=== PATIENT | male | born 2005 | race Caucasian/White ===

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

== ENCOUNTER 2025-03-27 14:53 | Inpatient (IN) | payer SELFPAY ==
[2025-03-27] VITALS (26 sets, daily range): BP systolic 127–174; BP diastolic 64–92; PULSE 78–125; RESP 16–26; TEMP 36.7; O2SAT 88–100
--- NOTE | ~2025-03-27 | XR_ITS ---
EXAMINATION: XR chest 2V, 03/27/2025 17:05 CLINIC SCHEDULER HISTORY: dyspnea, sob on exertion COMPARISON: No comparisons available. Technique: 2 views obtained. Findings: The lungs are clear, no effusion. No pneumothorax. Heart is normal size. Mediastinal and hilar contours are within normal limits. Bony thorax no acute abnormality. Impression: No acute cardiopulmonary abnormality. Reviewed, dictated and finalized at location P. IC SCHEDULER Impression: No acute cardiopulmonary abnormality.
--- NOTE | ~2025-03-27 | CT_ITS ---
EXAMINATION: CTA chest PE protocol DATE: 03/27/2025 20:28 INDICATION: Dyspnea. TECHNIQUE: Computed tomography angiography (CTA) of the chest was performed with 100 mL Omnipaque-350 intravenous contrast timed to evaluate the pulmonary arteries. Coronal maximum intensity projection 3D-reconstructions were created by the technologist. Automated exposure control and iterative reconstruction technique were employed. The dose-length product was 1088.11 mGy-cm. COMPARISON: None. FINDINGS: There are patchy groundglass opacities in left lower lobe. No pleural effusion. The heart size is normal. No pericardial effusion. There is no pulmonary embolus. There is moderate thoracic spondylosis. IMPRESSION: 1. No pulmonary embolus. 2. Patchy groundglass opacities in left lower lobe, consistent with pneumonia. Reviewed, dictated and finalized at location E. R TESTING SUPERVISOR
[2025-03-27] MEDS: IPRATROPIUM 0.5 MG/ALBUTEROL SULFATE 2.5 MG (BASE) AMPUL.NEB 3 ML INHALATION ×2 (16:24→23:37)
[2025-03-27 16:55] LABS: Hematocrit 45.4 % (42.0-52.0); Hemoglobin 14.2 g/dL (14.0-18.0); Immature Granulocyte Percent A 0.4 % (0-0.5); Lymphocytes Absolute Auto 3.42 K/mm3 (0.9-3.2); Mean Corpuscular HGB Conc 31.3 g/dl (32-36); Mean Corpuscular Hemoglobin 25.8 pg (26-34); Mean Corpuscular Volume 82.4 fl (80-100); Nucleated Red Blood Cells Absolute Auto 0.000 K/mm3 (0.0-0.012); Nucleated Red Blood Cells Perc 0.0 % (0.0-0.2); Platelet Count Result 274 k/mm3 (150-375); Red Blood Count 5.51 M/mm3 (4.6-6.20); White Blood Count 9.9 K/mm3 (4.5-10.0)
--- NOTE | 2025-03-27 16:56 | PC.NURSE ---
02 sats 86-87% on room air. Appears in no distress.
[2025-03-27 17:06] LABS: Alanine Aminotransferase 72 U/L (6-50); Albumin Level 4.5 g/dL (3.5-5.1); Alkaline Phosphatase 80 U/L (38-126); Anion Gap 10 mmol/L (4-12); Aspartate Amino Transferase 60 U/L (17-59); Bilirubin,Total 0.6 mg/dL (0.2-1.3); Blood Urea Nitrogen 14 mg/dL (9-20); Calcium 9.4 mg/dL (8.4-10.2); Carbon Dioxide 24 mmol/L (22-30); Chloride 103 mmol/L (98-107); Estimated CRCL calculation 271 ml/min; Estimated Glomerular Filt Rate > 60; Glucose 107 mg/dL (65-110); Potassium 4.5 mmol/L (3.4-5.0); Sodium 137 mmol/L (137-145); Total Protein 8.3 g/dL (6.3-8.2)
--- NOTE | 2025-03-27 17:24 | ED_ITS ---
HPI - General Adult General Chief complaint: Shortness of Breath/Dyspnea Stated complaint: Shortness of breath Time Seen by Provider: 03/27/25 15:48 History of Present Illness HPI narrative: 19-year-old male with PMH asthma presenting with increasing dyspnea for the last week. Patient reports URI symptoms including cough/congestion and a mild headache. He endorses having to use his rescue inhaler multiple times a day for the last week which gave him mild relief. He denies chest pain, dizziness, fevers/chills. Related Data Home Medications ?Medication ?Instructions ?Recorded ?Confirmed ?Last Taken ?Type albuterol sulfate 90 mcg/actuation 1 - 2 puff inhalati on Q6-8H 12/30/19 03/27/25 03/27/25 History aerosol inhaler Allergies Allergy/AdvReac Type Severity Reaction Status Date / Time No Known Allergies Allergy Verified 03/27/25 22:30 Review of Systems 2 Review of Systems: All systems reviewed & are unremarkable except as noted in HPI and below PMFSH Past Medical History Medical History Asthma Depression Family History Family History (Updated 03/27/25 @ 22:35 by Blade Prieto RN) Father Diabetes mellitus Mother Diabetes mellitus Social History Social History Smoking status: Never smoker Second hand tobacco smoke exposure: No Alcohol intake: former Substance use: current Substance use type: prescription drug Lack of Transportation: No Lack of Food: Never True Current Housing: I Have Housing Concerned About Future Housing: No Difficulty Paying Gas/Electric Bills: No Difficulty Paying for Meds: No Currently Unemployed: YES Education: High School Diploma/GED Difficulty w/ Childcare or Family Care: No Gender identity (if verbalized by the patient): Male Spiritual care concerns: No Exam 2 Narrative: GENERAL: Well-appearing, well-nourished, and in no acute distress. HEAD: Normocephalic, atraumatic. EYES: PERRLA and EOMI. ENT: Nares clear, no rhinorrhea or epistaxis. Mucous membranes moist. Oropharynx without tonsillar hypertrophy exudate or other lesions. Bilateral TMs pearly lawson non-bulging NECK: Supple. No adenopathy or masses. No carotid bruits or JVD CHEST: Wheezing in all lung morales. HEART: Tachycardic. Normal rhythm. No murmur heard. Normal peripheral pulses. ABDOMEN: Soft, nontender, nondistended, normal active bowel sounds. EXTREMITIES: Normal range of motion. No edema. SKIN: Warm, dry, no rash. NEURO: No focal deficits. Alert and oriented x3. PSYCH: Normal mood and affect Course Vital Signs Vital signs: Vital Signs Temperature 36.7 C 03/27/25 15:03 Pulse Rate 94 03/27/25 15:03 Respiratory Rate 20 03/27/25 15:03 Blood Pressure 174/92 H 03/27/25 15:03 Pulse Oximetry 96 03/27/25 15:03 Oxygen Delivery Room Air 03/27/25 15:03 Temperature 36.3 C L 03/29/25 20:00 Pulse Rate 98 03/29/25 21:21 Respiratory Rate 16 03/29/25 21:21 Blood Pressure 131/58 L 03/29/25 20:00 Pulse Oximetry 96 03/29/25 22:20 Oxygen Delivery Room Air 03/29/25 22:20 Oxygen Flow Rate 3 03/29/25 21:21 Fraction of Inspired Oxygen 21 03/29/25 22:20 Medical Decision Making [facility] Narrative Medical decision making narrative: 19-year-old male with PMH asthma presenting with increasing dyspnea for the last week. Patient reports URI symptoms including cough/congestion and a mild headache. He endorses having to use his rescue inhaler multiple times a day for the last week which gave him mild relief. He denies chest pain, dizziness, fevers/chills. Upon my initial assessment, patient is speaking in full sentences and sitting comfortably. Exam demonstrated wheezing in all lung morales and mild tachycardia. Administered Solu-Medrol and DuoNeb. Lab work WNL and no acute cardiopulmonary findings on CXR. Shortly after completing DuoNeb nursing staff notes a drop in O2 levels. Patient put on 2 L NC oxygen. Only mild improvement in lung sounds with first DuoNeb. Administered 1 L NS, IV Mag, and hour long DuoNeb. Patient reports he feels better but without oxygen his O2 saturation continues to drop to high 80s. Assessed patient with walking pulse oximetry and oxygen then dropped to low 80s. Began patient on ceftriaxone and doxycycline for CAP. Spoke with Dr. Patel with hospitalist for admitting for further care. Dr. Patel recommended ABG, CTA, and a full respiratory panel. Those have been added and will be further followed by the primary team. Agrees with admission at this time. Medical Records Medical records reviewed: Yes I reviewed the external patient's medical records. Vital Signs Vital Signs: Vital Signs Temperature 36.7 C 03/27/25 15:03 Pulse Rate 94 03/27/25 15:03 Respiratory Rate 20 03/27/25 15:03 Blood Pressure 174/92 H 03/27/25 15:03 Pulse Oximetry 96 03/27/25 15:03 Oxygen Delivery Room Air 03/27/25 15:03 Temperature 36.3 C L 03/29/25 20:00 Pulse Rate 98 03/29/25 21:21 Respiratory Rate 16 03/29/25 21:21 Blood Pressure 131/58 L 03/29/25 20:00 Pulse Oximetry 96 03/29/25 22:20 Oxygen Delivery Room Air 03/29/25 22:20 Oxygen Flow Rate 3 03/29/25 21:21 Fraction of Inspired Oxygen 21 03/29/25 22:20 Lab Data Lab results reviewed: Yes I reviewed the patient's lab results. 03/29/25 04:41 03/29/25 04:41 Labs: Lab Results 03/27/25 Range/Units 16:43 WBC 9.9 (4.5-10.0) K/mm3 RBC 5.51 (4.6-6.20) M/mm3 Hgb 14.2 (14.0-18.0) g/dL Hct 45.4 (42.0-52.0) % MCV 82.4 (80-100) fl MCH 25.8 L (26-34) pg MCHC 31.3 L (32-36) g/dl RDW 14.0 (11.5-14.5) % Plt Count 274 (150-375) k/mm3 MPV 11.0 H (7.4-10.4) fl Immature Gran % (Auto) 0.4 (0-0.5) % Neut % (Auto) 50.8 (45.5-73.1) % Lymph % (Auto) 34.5 (18.3-44.2) % [place] % (Auto) 7.0 (2.6-8.5) % Eos % (Auto) 6.9 H (0-4.4) % Baso % (Auto) 0.4 (0.2-1.2) % Lymph # (Auto) 3.42 H (0.9-3.2) K/mm3 [place] # (Auto) 0.7 H (0.1-0.6) K/mm3 Eos # (Auto) 0.7 H (0-0.3) K/mm3 Baso # (Auto) 0.0 (0.0-0.1) K/mm3 Abs Immat Gran (auto) 0.04 H (0.00-0.031) K/mm3 Absolute Neuts (auto) 5.0 (1.3-6.7) K/mm3 Absolute Nucleated RBC 0.000 (0.0-0.012) K/mm3 Nucleated RBC % 0.0 (0.0-0.2) % Sodium 137 (137-145) mmol/L Potassium 4.5 (3.4-5.0) mmol/L Chloride 103 (98-107) mmol/L Carbon Dioxide 24 (22-30) mmol/L Anion Gap 10 (4-12) mmol/L BUN 14 (9-20) mg/dL Creatinine 0.64 L (0.7-1.3) mg/dL Estim Creat Clear Calc 271 ml/min Estimated GFR > 60 (59 - ) Glucose 107 (65-110) mg/dL Calcium 9.4 (8.4-10.2) mg/dL Total Bilirubin 0.6 (0.2-1.3) mg/dL AST 60 H (17-59) U/L ALT 72 H (6-50) U/L Alkaline Phosphatase 80 (38-126) U/L Total Protein 8.3 H (6.3-8.2) g/dL Albumin 4.5 (3.5-5.1) g/dL Influenza A (RT-PCR) Negative (Negative) Influenza B (RT-PCR) Negative (Negative) RSV (RT-PCR) Negative (Negative) SARS-CoV-2 RNA (RT-PCR) Negative (Negative) Imaging Data Attestation: I personally reviewed and interpreted this imaging study as follows: Radiologist's impression: ITS Impressions Chest X-Ray 03/27/25 17:29 Impression: No acute cardiopulmonary abnormality. Discharge Plan Discharge Clinical Impression: Acute hypoxic respiratory failure, Asthma exacerbation Patient Disposition: Still a Patient Condition: Stable
[2025-03-27 17:31] LABS: Influenza A QL RT-PCR Negative (Negative); Influenza B QL RT-PCR Negative (Negative); RSV RNA, RT-PCR Negative (Negative); SARS-CoV-2 RNA PCR Negative (Negative)
[2025-03-27] MEDS: SODIUM CHLORIDE 0.9% IV 1,000 ML 999 ML IV CONT (17:53)
[2025-03-27] MEDS: MAGNESIUM SULF 2 GM/WATER 50ML 2 GM/50 ML BAG IVPB (17:54)
[2025-03-27] MEDS: ALBUTEROL SULFATE NEB 2.5 MG/3 ML INH 10 MG INHALATION (17:55)
--- NOTE | 2025-03-27 20:33 | PM.IMHP ---
H&P: HPI History of Present Illness Date/Time: 03/27/25 20:33 Chief Complaint: Shortness of breath Narrative: 19-year-old male with PMH asthma, depression, class 3 obesity presents to [facility] on 03/27/2025 with 3 days of shortness of breath. Lives with his parents, currently does not have insurance, only has a rescue inhaler. Three days ago the patient experienced shortness of breath, cough productive of green sputum. Did not notice wheezing. His father placed him on his mother's nasal cannula and he felt better. However symptoms persisted over the next few days. He has been working out in the yard, younger brother had an asthma attack recently as well. They have mold in the house, dogs for many years now. Denies tobacco abuse, marijuana, alcohol, recreational drug use. Patient snores a lot as well. Denies fever, had some chest tightness which resolved. Denies nausea, vomiting, diarrhea, fever, syncope. In the ER the patient's O2 saturation on room air has been dropping to 87%. Received breathing treatments, had sinus tachycardia, tachypnea, blood pressure elevated at 164/87. Laboratory evaluation with normal white cells, eosinophils 6.9%, CMP remarkable for AST 60, ALT 72, quad viral screen negative. Chest x-ray two view without acute abnormalities. Also received ceftriaxone 1 g, doxycycline 100 mg, magnesium rider 2 g, Solu-Medrol 125 mg IM x1. Review of Systems Review of Systems: All systems reviewed & are unremarkable except as noted in HPI and below (Subjective) [facility] Past Medical History Medical History Asthma Depression Social History Social History Smoking status: Never smoker Gender identity (if verbalized by the patient): Male Meds Home Medications and Allergies Home Medications ?Medication ?Instructions ?Recorded ?Confirmed ?Type albuterol sulfate 90 mcg/actuation 1 - 2 puff inhalation Q6-8H 12/30/19 08/04/22 History aerosol inhaler montelukast 10 mg tablet 10 mg PO HS 12/30/19 08/04/22 History escitalopram oxalate 20 mg tablet 1 tablet PO DAILY 10/14/21 08/04/22 History amoxicillin 500 mg capsule 500 mg PO Q12H #20 caps 08/04/22 Rx cyclobenzaprine 10 mg tablet 10 mg PO TID PRN muscle spasm #10 08/04/22 Rx tabs cyclobenzaprine 15 mg 15 mg PO DAILY #30 caps 08/05/22 Rx capsule,extended release 24 hr naproxen 250 mg tablet 250 mg PO BID PRN pain #60 tabs 08/05/22 Rx Allergies Allergy/AdvReac Type Severity Reaction Status Date / Time No Known Allergies Allergy Verified 03/27/25 15:05 Vital Signs Vital Signs - 24 hr 03/27/25 15:03 03/27/25 15:45 03/27/25 16:25 Temperature 98.1 F Pulse Rate 94 101 H 93 Respiratory Rate 20 16 20 Blood Pressure 174/92 H 147/86 H Pulse Oximetry 96 90 Oxygen Delivery Room Air Oxygen Flow Rate 03/27/25 16:30 03/27/25 16:30 03/27/25 16:36 Temperature Pulse Rate 102 H 102 H Respiratory Rate 20 16 Blood Pressure 160/80 H Pulse Oximetry 100 92 Oxygen Delivery Oxygen Flow Rate 03/27/25 16:45 03/27/25 16:55 03/27/25 17:00 Temperature Pulse Rate Respiratory Rate Blood Pressure Pulse Oximetry 92 92 92 Oxygen Delivery Nasal Cannula Oxygen Flow Rate 2 03/27/25 17:15 03/27/25 17:16 03/27/25 17:30 Temperature Pulse Rate Respiratory Rate Blood Pressure 133/86 Pulse Oximetry 91 97 91 Oxygen Delivery Oxygen Flow Rate 03/27/25 17:45 03/27/25 17:57 03/27/25 18:00 Temperature Pulse Rate 100 105 H Respiratory Rate 23 H 18 Blood Pressure Pulse Oximetry 92 96 Oxygen Delivery Oxygen Flow Rate 03/27/25 18:01 03/27/25 18:15 03/27/25 18:30 Temperature Pulse Rate 120 H 100 105 H Respiratory Rate 21 H 18 18 Blood Pressure 164/87 H Pulse Oximetry 97 96 99 Oxygen Delivery Oxygen Flow Rate Exam Const: General: comfortable and no acute distress Other: A&O x4 HENMT: Mouth: Yes moist mucous membranes Other: Modified Mallampati score 4 Eyes: Pupils: Equal, round and reactive pupils present Neck: Neck: supple Resp: Auscultation: diminished lung sounds Other: Slight wheeze, no other adventitious sounds Cardio: Rate: tachycardic Rhythm: regular rhythm Heart sounds: no murmurs GI: Inspection: non-distended GI Palp: Yes Soft to palpation : General: Yes bladder normal to palpation Neuro: Motor exam (neuro): 5/5 motor strength present throughout Extrem: General: no edema H&P: Results Labs Labs: Short CBC 03/27/25 Range/Units 16:43 WBC 9.9 (4.5-10.0) K/mm3 Hgb 14.2 (14.0-18.0) g/dL Hct 45.4 (42.0-52.0) % Plt Count 274 (150-375) k/mm3 BMP 03/27/25 16:43 Sodium 137 Potassium 4.5 Chloride 103 Carbon Dioxide 24 BUN 14 Creatinine 0.64 L Glucose 107 Calcium 9.4 Liver Function 03/27/25 Range/Units 16:43 Total Bilirubin 0.6 (0.2-1.3) mg/dL AST 60 H (17-59) U/L ALT 72 H (6-50) U/L Alkaline Phosphatase 80 (38-126) U/L Albumin 4.5 (3.5-5.1) g/dL Assessment and Plan Assessment and plan (1) Acute hypoxic respiratory failure: Code(s): J96.01 - Acute respiratory failure with hypoxia Status: Acute (2) Asthma exacerbation: Code(s): J45.901 - Unspecified asthma with (acute) exacerbation Status: Acute Plan 19-year-old male with PMH asthma, depression, class 3 obesity presents to [facility] on 03/27/2025 with 3 days of shortness of breath. Lives with his parents, currently does not have insurance, only has a rescue inhaler. Three days ago the patient experienced shortness of breath, cough productive of green sputum. Did not notice wheezing. His father placed him on his mother's nasal cannula and he felt better. However symptoms persisted over the next few days. He has been working out in the yard, younger brother had an asthma attack recently as well. They have mold in the house, dogs for many years now. Denies tobacco abuse, marijuana, alcohol, recreational drug use. Patient snores a lot as well. Denies fever, had some chest tightness which resolved. Denies nausea, vomiting, diarrhea, fever, syncope. In the ER the patient's O2 saturation on room air has been dropping to 87%. Received breathing treatments, had sinus tachycardia, tachypnea, blood pressure elevated at 164/87. Laboratory evaluation with normal white cells, eosinophils 6.9%, CMP remarkable for AST 60, ALT 72, quad viral screen negative. Chest x-ray two view without acute abnormalities. Also received ceftriaxone 1 g, doxycycline 100 mg, magnesium rider 2 g, Solu-Medrol 125 mg IM x1. ----- Patient presents with acute asthma exacerbation. Last hospitalized as a child for asthma. His father reports mold in the house, they have been working out in the yard and his younger brother experienced asthma attack as well. Continue Solu-Medrol 40 mg IV q.8 hours, DuoNeb scheduled q.4 hours with additional p.r.n.. Peak flow before and after treatments. Oxygen protocol to keep SpO2 above 92%. Patient is resting and breathing comfortably however has persistent hypoxia. This raises the concern for concomitant etiologies. Check ABG, due to his obesity and large neck circumference, could have component of IBRAHIMA/OHS. CTA chest to rule out PE or other lung pathologies. He will need to follow-up with PCP and bread baker for sleep study and further investigations. Check full respiratory pathogen panel. For now, hold antibiotics unless evidence of pneumonia on CTA chest. Check sputum culture. Class 3 obesity. Encourage lifestyle changes and weight loss plan. Elevated blood pressure: Continue to monitor as his hospital course progresses. Monitor LFTs. ----- Patient wishes to be full code. Lives at home with his parents. SCDs. Saline lock IV Heart healthy diet. Hospitalist [facility] Advance Care Plan I have confirmed that the patient's Advanced Care Plan is present, code status is documented, or surrogate decision maker is listed in patient medical record.: Yes Medication Reconciliation I have utilized all available resources to obtain, update and review the patients current medications (includes all prescriptions, OTC, herbals, cannabis, and nutritional supplements).: Yes
--- NOTE | 2025-03-27 20:36 | PCRCNOTE ---
ABG delayed: Patient in imaging.
--- NOTE | 2025-03-27 21:11 | WPCEDHO ---
ED Hand Off Checklist All vitals saved: Yes IV Site documented: Yes All med administrations documented: Yes Triage Note Triage Note Pt to ed ambulatory co cough, 03/27/25 15:03 congestion and SOB. Pt is more SOB on exertions, pt said he is coughing green mucus. Allergies No Known Allergies Allergy (Verified 03/27/25 15:05) Current Diagnoses Unspecified asthma with (acute) exacerbation (03/27/25) Acute respiratory failure with hypoxia (03/27/25) Administered/Completed Medications Discontinued Medications Albuterol (Albuterol Sulfate Neb 2.5 Mg/3 Ml Inh) 10 mg INHALATION ONCE STA Stop: 03/27/25 17:18 Last Admin: 03/27/25 17:55 Dose: 10 mg Documented By: YOUSIF Albuterol (Albuterol Sulfate Neb 2.5 Mg/3 Ml Inh) Confirm Administered Dose 2.5 mg .ROUTE .STK-MED ONE Stop: 03/27/25 17:29 Last Admin: 03/27/25 17:56 Dose: Not Given Documented By: YOUSIF Non-Admin Reason: Duplicate Dose Albuterol/Ipratropium (Ipratropium 0.5 Mg/Albuterol Sulfate 2.5 Mg (Base) Ampul.Neb 3 Ml) 3 ml INHALATION ONCE STA Stop: 03/27/25 16:12 Last Admin: 03/27/25 16:24 Dose: 3 ml Documented By: YOUSIF Sodium Chloride (Normal Saline Iv) 1,000 mls @ 999 mls/hr IV CONT .Q1H1M STA Stop: 03/27/25 18:11 Last Infusion: 03/27/25 19:06 Dose: Infused Documented By: Admin: 03/27/25 17:53 Dose: 999 mls/hr Documented By: ESTUARDO Magnesium Sulfate (Magnesium Sulf 2 Gm/Water 50ml) 2 gm in 50 mls @ 25 mls/hr IVPB ONCE ONE Stop: 03/27/25 19:10 Last Infusion: 03/27/25 19:06 Dose: Infused Documented By: Admin: 03/27/25 17:54 Dose: 25 mls/hr Documented By: ESTUARDO Co-signed By: IONA Methylprednisolone Sodium Succinate (Methylprednisolone Sod Succ 125 Mg Vial) 125 mg IM ONCE STA Stop: 03/27/25 16:12 Last Admin: 03/27/25 16:36 Dose: 125 mg Documented By: LEV Notes 03/27/25 20:36 Respiratory Therapy Note by Ki Feliciano delayed: Patient in imaging. Initialized on 03/27/25 20:36 - END OF NOTE 03/27/25 16:56 Nurse Note by Fatoumata Macario sats 86-87% on room air. Appears in no distress. Initialized on 03/27/25 16:56 - END OF NOTE Interventions/Assessments IV / Saline Lock, Insert Start: 03/27/25 14:53 Freq: Status: Active Protocol: Document 03/27/25 17:52 LEV (Rec: 03/27/25 17:53 LEV [id number]) IV Assessment Peripheral Access Right Forearm IV Catheter Access Initiated IV Insertion Date 03/27/25 IV Insertion Time 17:52 Catheter Gauge 20 IV Insertion 1 Attempts Ultrasound Used for No Placement IV Site Assessment WNL IV Care and WNL Maintenance PA: Cardiovascular Assessment Start: 03/27/25 14:53 Freq: Status: Active Protocol: Document 03/27/25 15:58 LEV (Rec: 03/27/25 15:58 LEV [id number]) Cardiovascular Assessment Cardiovascular Dyspnea Symptoms Skin Description Normal Color Heart Sounds Normal Jugular Vein None Distention PA: Respiratory Assessment Start: 03/27/25 14:53 Freq: Status: Active Protocol: Document 03/27/25 17:55 LEV (Rec: 03/27/25 17:55 LEV [id number]) Respiratory Assessment Symptoms Congestion,Cough,Wheezing Effort Normal Pattern Regular Depth Normal Chest Expansion Symmetrical Adult Capillary Normal/Less than 2 Seconds Refill Throughout Phase Expiratory Lung Sounds Wheezes Last Vital Signs Temperature 98.1 F 03/27/25 15:03 Pulse Rate 122 H 03/27/25 19:08 Respiratory Rate 23 H 03/27/25 19:08 Pulse Oximetry 88 L 03/27/25 20:31 Blood Pressure 155/66 H 03/27/25 20:31 Blood Pressure Mean 89 03/27/25 20:31 Blood Pressure Position Sitting 03/27/25 16:30 Oxygen Delivery Nasal Cannula 03/27/25 16:55 Oxygen Flow Rate 2 03/27/25 16:55 Weight 183.1 kg 03/27/25 15:03 Last Result - Abnormals Only MCH 25.8 pg (26-34) L 03/27/25 16:43 MCHC 31.3 g/dl (32-36) L 03/27/25 16:43 MPV 11.0 fl (7.4-10.4) H 03/27/25 16:43 Eos % (Auto) 6.9 % (0-4.4) H 03/27/25 16:43 Lymph # (Auto) 3.42 K/mm3 (0.9-3.2) H 03/27/25 16:43 [place] # (Auto) 0.7 K/mm3 (0.1-0.6) H 03/27/25 16:43 Eos # (Auto) 0.7 K/mm3 (0-0.3) H 03/27/25 16:43 Abs Immat Gran (auto) 0.04 K/mm3 (0.00-0.031) H 03/27/25 16:43 Creatinine 0.64 mg/dL (0.7-1.3) L 03/27/25 16:43 AST 60 U/L (17-59) H 03/27/25 16:43 ALT 72 U/L (6-50) H 03/27/25 16:43 Total Protein 8.3 g/dL (6.3-8.2) H 03/27/25 16:43 Most Recent Suicide Severity Rating Suicide Severity Rating NO RISK INDICATED 03/27/25 15:03
[2025-03-27] MEDS: cefTRIAXone 1 GM in SODIUM CHLORIDE 0.9% IV 50 ML 100 ML IVPB (21:44)
[2025-03-27] MEDS: DOXYCYCLINE IV 100 MG in SODIUM CHLORIDE 0.9% IV 100 ML IVPB (21:45)
--- NOTE | 2025-03-27 23:22 | PCRCNOTE ---
[facility] attempted ABG with assist and is unable to obtain. Order has been updated to a VBG.
[2025-03-27 23:47] LABS: Fractional Inspired Oxygen 36 %; HCO3 VBG 21.0 mEq/l (24.0-30.0); PCO2 VBG 31.7 mmHg (42.0-48.0); PO2 VBG 76.4 mmHg (35.0-45.0)
[2025-03-27 23:53] LABS: pH VBG 7.440 (7.300-7.400)
[2025-03-27 23:54] LABS: Liters per Minute 4.0 LPM
[2025-03-28] VITALS (25 sets, daily range): BP systolic 135–161; BP diastolic 61–94; PULSE 105–125; RESP 16–26; TEMP 36.2–36.9; O2SAT 79–100; BMI 52.0
[2025-03-28] MEDS: ACETAMINOPHEN 500 MG TABLET PO ×2 (01:16→23:14)
[2025-03-28] MEDS: IPRATROPIUM 0.5 MG/ALBUTEROL SULFATE 2.5 MG (BASE) AMPUL.NEB 3 ML INHALATION ×4 (03:57→22:07)
[2025-03-28 06:40] LABS: Hematocrit 43.6 % (42.0-52.0); Hemoglobin 13.8 g/dL (14.0-18.0); Immature Granulocyte Percent A 0.6 % (0-0.5); Lymphocytes Absolute Auto 1.23 K/mm3 (0.9-3.2); Mean Corpuscular HGB Conc 31.7 g/dl (32-36); Mean Corpuscular Hemoglobin 25.9 pg (26-34); Mean Corpuscular Volume 82.0 fl (80-100); Nucleated Red Blood Cells Absolute Auto 0.000 K/mm3 (0.0-0.012); Nucleated Red Blood Cells Perc 0.0 % (0.0-0.2); Platelet Count Result 321 k/mm3 (150-375); Red Blood Count 5.32 M/mm3 (4.6-6.20); White Blood Count 8.2 K/mm3 (4.5-10.0)
[2025-03-28 06:58] LABS: Alanine Aminotransferase 67 U/L (6-50); Albumin Level 4.5 g/dL (3.5-5.1); Alkaline Phosphatase 84 U/L (38-126); Anion Gap 12 mmol/L (4-12); Aspartate Amino Transferase 43 U/L (17-59); Bilirubin,Total 0.5 mg/dL (0.2-1.3); Blood Urea Nitrogen 13 mg/dL (9-20); Calcium 9.5 mg/dL (8.4-10.2); Carbon Dioxide 20 mmol/L (22-30); Chloride 106 mmol/L (98-107); Estimated CRCL calculation 257 ml/min; Estimated Glomerular Filt Rate > 60; Glucose 177 mg/dL (65-110); Magnesium 2.3 mg/dL (1.6-2.3); Potassium 3.8 mmol/L (3.4-5.0); Sodium 138 mmol/L (137-145); Total Protein 8.1 g/dL (6.3-8.2)
[2025-03-28] MEDS: DOXYCYCLINE IV 100 MG in SODIUM CHLORIDE 0.9% IV 100 ML IVPB ×2 (09:40→21:12)
[2025-03-28] MEDS: WATER FOR IRRIGATION, STERILE 500 ML BOTTLE (09:45)
--- NOTE | 2025-03-28 11:47 | PC.NURSE ---
Patient on continuous pulse ox. Patient on CPAP with 10L bleed in. RN called hospitalist Chana and updated him on patient's oxygen saturation. Hosptialist Chana stated he would have cane burner come and assess patient for possible higher level of care needs.
--- NOTE | 2025-03-28 13:26 | PM.IMPN ---
Progress Note: A&P Assessment and Plan (1) Asthma exacerbation: Code(s): J45.901 - Unspecified asthma with (acute) exacerbation Status: Acute (2) Acute hypoxic respiratory failure: Code(s): J96.01 - Acute respiratory failure with hypoxia Status: Acute Plan Acute asthma exacerbation Acute hypoxic respiratory failure -patient has underlying asthma on rescue inhaler. He likely has moderate persistent asthma as opposed to mild intermittent -symptom onset 3 days prior to hospitalization -does not use any home oxygen therapy, in the ED dropped to 87% on room air -in the ED he was given Solu-Medrol 125 mg and magnesium 2 g -patient continued to have desaturations while sleeping, likely some undiagnosed sleep apnea -patient placed on Airvo 40 L 45% FiO2, will wean as tolerated. plan for bipap at night. goal O2 sat>90% -steroids: Solu-Medrol 40 mg q.8 hour -nebs: DuoNebs q.6 hour -chest x-ray has small area of infiltrate. He is afebrile and no leukocytosis, no sputum production, doubt pneumonia -antibiotics: Rocephin, doxycycline, will re-evaluate tomorrow -continue monitor on telemetry -will consult product manager medical device Dr. Li tomorrow to follow up with sleep apnea work up and further management of his asthma -respiratory panel pending, blood cultures pending Chronic conditions -class 3 morbid obesity: Will need weight loss plan, BMI 52.1 -depression: Not on any medications Diet: Heart healthy DVT prophylaxis: SCDs, ambulatory Code status: Full code Disposition: home > 2 days Time Spent With Patient Time: 45 minutes Subjective Date/time seen: 03/28/25 13:26 Interval history: Patient seen and examined. He was admitted overnight with asthma exacerbation. He denies fever, chills, nausea vomiting diarrhea. Patient was desatting while sleeping, likely undiagnosed sleep apnea. His placed on CPAP however on CPAP he was desatting as well. He was then placed on Airvo which we have titrated down to 40L 45% FiO2. We will have pulmonology consulted to help with sleep apnea testing and discharge plan. Review of Systems Review of Systems: 10 point ROS complete, negative other than what is specified in HPI. Exam Narrative: - GENERAL: Pleasant morbidly obese male in No acute distress. - EYES: EOMI. Anicteric. - HENT: Moist mucous membranes. - LUNGS: Clear to auscultation bilaterally, no wheezing, diminished on airvo - CARDIOVASCULAR: Regular rate and rhythm. No murmur. No JVD. - ABDOMEN: Soft, non-tender and non-distended. No palpable masses. - EXTREMITIES: No edema. Peripheral pulses 2+. Non-tender. - NEUROLOGIC: No focal neurological deficits. CN II-XII grossly intact. - PSYCHIATRIC: Awake, Alert and oriented x 3. Appropriate mood and affect. - SKIN: No rashes or lesions. Warm. - LYMPH: No cervical lymphadenopathy. Objective Data Vital Signs Vital Signs: Vital Signs - 24 hr 03/27/25 15:03 03/27/25 15:45 03/27/25 16:25 Temperature 36.7 C Pulse Rate 94 101 H 93 Respiratory Rate 20 16 20 Blood Pressure 174/92 H 147/86 H Pulse Oximetry 96 90 Oxygen Delivery Room Air Oxygen Flow Rate Fraction of Inspired Oxygen 03/27/25 16:30 03/27/25 16:30 03/27/25 16:36 Temperature Pulse Rate 102 H 102 H Respiratory Rate 20 16 Blood Pressure 160/80 H Pulse Oximetry 100 92 Oxygen Delivery Oxygen Flow Rate Fraction of Inspired Oxygen 03/27/25 16:45 03/27/25 16:55 03/27/25 17:00 Temperature Pulse Rate Respiratory Rate Blood Pressure Pulse Oximetry 92 92 92 Oxygen Delivery Nasal Cannula Oxygen Flow Rate 2 Fraction of Inspired Oxygen 03/27/25 17:15 03/27/25 17:16 03/27/25 17:30 Temperature Pulse Rate Respiratory Rate Blood Pressure 133/86 Pulse Oximetry 91 97 91 Oxygen Delivery Oxygen Flow Rate Fraction of Inspired Oxygen 03/27/25 17:45 03/27/25 17:57 03/27/25 18:00 Temperature Pulse Rate 100 105 H Respiratory Rate 23 H 18 Blood Pressure Pulse Oximetry 92 96 Oxygen Delivery Oxygen Flow Rate Fraction of Inspired Oxygen 03/27/25 18:01 03/27/25 18:15 03/27/25 18:30 Temperature Pulse Rate 120 H 100 105 H Respiratory Rate 21 H 18 18 Blood Pressure 164/87 H Pulse Oximetry 97 96 99 Oxygen Delivery Oxygen Flow Rate Fraction of Inspired Oxygen 03/27/25 18:46 03/27/25 19:08 03/27/25 20:30 Temperature Pulse Rate 113 H 122 H Respiratory Rate 26 H 23 H Blood Pressure 145/83 H 161/89 H 127/64 Pulse Oximetry 97 96 92 Oxygen Delivery Oxygen Flow Rate Fraction of Inspired Oxygen 03/27/25 20:31 03/27/25 21:46 03/27/25 22:26 Temperature Pulse Rate 78 125 H Respiratory Rate 20 Blood Pressure 155/66 H 148/68 H 154/91 H Pulse Oximetry 88 L 93 94 Oxygen Delivery Oxygen Flow Rate Fraction of Inspired Oxygen 03/27/25 23:39 03/27/25 23:56 03/27/25 23:57 Temperature Pulse Rate 120 H 120 H 120 H Respiratory Rate 20 20 20 Blood Pressure Pulse Oximetry 90 Oxygen Delivery Nasal Cannula Oxygen Flow Rate 4 Fraction of Inspired Oxygen 36 03/28/25 00:00 03/28/25 00:00 03/28/25 02:30 Temperature 36.6 C Pulse Rate 115 H 116 H 115 H Respiratory Rate 20 20 Blood Pressure 146/78 H Pulse Oximetry 95 97 Oxygen Delivery Venturi Mask Oxygen Flow Rate 9 Fraction of Inspired Oxygen 35 03/28/25 02:48 03/28/25 03:57 03/28/25 04:00 Temperature Pulse Rate 113 H 117 H 119 H Respiratory Rate 20 20 Blood Pressure Pulse Oximetry 92 Oxygen Delivery Venturi Mask Oxygen Flow Rate 15 Fraction of Inspired Oxygen 50 03/28/25 04:00 03/28/25 04:06 03/28/25 05:39 Temperature 36.7 C Pulse Rate 122 H 125 H 122 H Respiratory Rate 22 H 20 20 Blood Pressure 161/94 H Pulse Oximetry 98 93 Oxygen Delivery High Flow Therapy with Na Oxygen Flow Rate 30 Fraction of Inspired Oxygen 50 03/28/25 08:00 03/28/25 08:00 03/28/25 08:11 Temperature 36.2 C L Pulse Rate 117 H 107 H 120 H Respiratory Rate 17 18 Blood Pressure 145/61 H Pulse Oximetry 96 95 Oxygen Delivery High Flow Therapy with Na Oxygen Flow Rate 30 Fraction of Inspired Oxygen 50 03/28/25 08:11 03/28/25 08:18 03/28/25 09:34 Temperature Pulse Rate 120 H 112 H 119 H Respiratory Rate 16 18 Blood Pressure Pulse Oximetry 93 Oxygen Delivery Autopap Oxygen Flow Rate Fraction of Inspired Oxygen 03/28/25 11:44 03/28/25 11:55 03/28/25 12:00 Temperature 36.4 C Pulse Rate 119 H 109 H Respiratory Rate 20 17 Blood Pressure 143/80 H Pulse Oximetry 79 L 94 95 Oxygen Delivery High Flow Therapy with Na Oxygen Flow Rate 30 Fraction of Inspired Oxygen 55 03/28/25 12:30 03/28/25 12:32 03/28/25 12:40 Temperature Pulse Rate 109 H 109 H Respiratory Rate 20 20 Blood Pressure Pulse Oximetry 94 Oxygen Delivery Oxygen Flow Rate 35 Fraction of Inspired Oxygen 03/28/25 13:00 Temperature Pulse Rate 109 H Respiratory Rate 20 Blood Pressure Pulse Oximetry 94 Oxygen Delivery High Flow Therapy with Na Oxygen Flow Rate 40 Fraction of Inspired Oxygen 45 Intake/Output Intake/Output: Intake & Output 03/25/25 03/26/25 03/27/25 03/28/25 23:59 23:59 23:59 23:59 Intake Total 1050 730 Balance 1050 730 Meds/Results Medications: Active Medications Generic Name Dose Route Start Last Admin Trade Name Freq PRN Reason Stop Dose Admin Acetaminophen 500 mg 03/28/25 01:05 03/28/25 01:16 Acetaminophen 500 Mg Tablet PO 500 mg Q6H PRN Administration Mild Pain (1-3) or Fever Albuterol/Ipratropium 3 ml 03/27/25 20:55 Ipratropium 0.5 Mg/Albuterol Sulfate 2.5 Mg (Base) Ampul.Neb 3 Ml INHALATION Q4HR PRN shortness of breath Albuterol/Ipratropium 3 ml 03/28/25 20:00 Ipratropium 0.5 Mg/Albuterol Sulfate 2.5 Mg (Base) Ampul.Neb 3 Ml INHALATION Q6HRT [facility] Ceftriaxone Sodium 1 gm/ 50 mls @ 100 mls/hr 03/28/25 22:00 Sodium Chloride IVPB Q24H ROMI Doxycycline Hyclate 100 mg/ 100 mls @ 100 mls/hr 03/28/25 10:00 03/28/25 09:40 Sodium Chloride IVPB 04/01/25 10:59 100 mls/hr Q12H ROMI Administration Methylprednisolone Sodium Succinate 40 mg 03/27/25 22:00 03/28/25 06:04 Methylprednisolone Sod Succ 125 Mg Vial IV PUSH 40 mg Q8HR ROMI Administration Radiology Results: ITS Impressions Chest X-Ray 03/27/25 17:29 Impression: No acute cardiopulmonary abnormality. Chest CTA 03/28/25 07:33 IMPRESSION: 1. No pulmonary embolus. 2. Patchy groundglass opacities in left lower lobe, consistent with pneumonia. Labs Labs: Laboratory Results - last 24 hr 03/27/25 03/27/25 03/28/25 16:43 23:34 06:10 WBC 9.9 8.2 RBC 5.51 5.32 Hgb 14.2 13.8 L Hct 45.4 43.6 MCV 82.4 82.0 MCH 25.8 L 25.9 L MCHC 31.3 L 31.7 L RDW 14.0 14.2 Plt Count 274 321 MPV 11.0 H 11.6 H Immature Gran % (Auto) 0.4 0.6 H Neut % (Auto) 50.8 83.0 H Lymph % (Auto) 34.5 15.1 L [place] % (Auto) 7.0 1.2 L Eos % (Auto) 6.9 H 0.0 Baso % (Auto) 0.4 0.1 L Lymph # (Auto) 3.42 H 1.23 [place] # (Auto) 0.7 H 0.1 Eos # (Auto) 0.7 H 0.0 Baso # (Auto) 0.0 0.0 Abs Immat Gran (auto) 0.04 H 0.05 H Absolute Neuts (auto) 5.0 6.8 H Absolute Nucleated RBC 0.000 0.000 Nucleated RBC % 0.0 0.0 VBG pH 7.440 H* VBG pCO2 31.7 L VBG pO2 76.4 H VBG HCO3 21.0 L O2 Delivery Device Nasal cannula O2 Liters/Min 4.0 FiO2 36 Sodium 137 138 Potassium 4.5 3.8 Chloride 103 106 Carbon Dioxide 24 20 L Anion Gap 10 12 BUN 14 13 Creatinine 0.64 L 0.68 L Estim Creat Clear Calc 271 257 Estimated GFR > 60 > 60 Glucose 107 177 H Calcium 9.4 9.5 Magnesium 2.3 Total Bilirubin 0.6 0.5 AST 60 H 43 ALT 72 H 67 H Alkaline Phosphatase 80 84 Total Protein 8.3 H 8.1 Albumin 4.5 4.5 Influenza A (RT-PCR) Negative Influenza B (RT-PCR) Negative RSV (RT-PCR) Negative SARS-CoV-2 RNA (RT-PCR) Negative Imaging Radiologist's impression: CXR 03/27 Impression: No acute cardiopulmonary abnormality. CTA chest 03/28
[2025-03-28] MEDS: SODIUM CHLORIDE NASAL GEL 14.1 GM 1 APPLIC NASAL (16:21)
[2025-03-28] MEDS: cefTRIAXone 1 GM in SODIUM CHLORIDE 0.9% IV 50 ML 100 ML IVPB (21:11)
[2025-03-29] VITALS (21 sets, daily range): BP systolic 124–169; BP diastolic 58–82; PULSE 68–119; RESP 16–24; TEMP 36.3–37.2; O2SAT 89–100
[2025-03-29] MEDS: IPRATROPIUM 0.5 MG/ALBUTEROL SULFATE 2.5 MG (BASE) AMPUL.NEB 3 ML INHALATION ×2 (01:00→07:43)
[2025-03-29 05:47] LABS: Hematocrit 42.7 % (42.0-52.0); Hemoglobin 13.3 g/dL (14.0-18.0); Mean Corpuscular HGB Conc 31.1 g/dl (32-36); Mean Corpuscular Hemoglobin 25.4 pg (26-34); Mean Corpuscular Volume 81.6 fl (80-100); Platelet Count Result 339 k/mm3 (150-375); Red Blood Count 5.23 M/mm3 (4.6-6.20); White Blood Count 13.9 K/mm3 (4.5-10.0)
[2025-03-29 06:07] LABS: Anion Gap 10 mmol/L (4-12); Blood Urea Nitrogen 22 mg/dL (9-20); Calcium 9.6 mg/dL (8.4-10.2); Carbon Dioxide 20 mmol/L (22-30); Chloride 105 mmol/L (98-107); Estimated CRCL calculation 275 ml/min; Estimated Glomerular Filt Rate > 60; Glucose 116 mg/dL (65-110); Magnesium 2.5 mg/dL (1.6-2.3); Potassium 4.4 mmol/L (3.4-5.0); Sodium 135 mmol/L (137-145)
--- NOTE | 2025-03-29 08:14 | ECHO_ITS ---
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 Staff Referring Physician: Suzy Shaffer Bank Clerk: Ashley Khan Attending Provider: Ne Patel Contrast/Agitated Saline Contrast/Ag. Saline: Definity Amount: 3.00 ml Administered By: Ashley Khan Existing IV Access: Yes IV Access Condition: patent with no signs of infiltration Summary 1. There is normal biventricular size and systolic function. 2. This was a suboptimal study with poor acoustic windows to clearly define the valves. However there are no clear evidence by echo color Doppler of severe valvular disease. 3. There was insufficient assessment of the tricuspid valve to estimate the pulmonary pressures. Left Ventricle The left ventricle is normal in size and systolic function. The left ventricular ejection fraction is visually estimated to be 60-65%. There are no regional wall motion abnormalities. Right Ventricle The right ventricle is normal in size and systolic function. Left Atria The left atrium is normal size. Right Atria The right atrium is normal size. Atrial Septum The atrial septum is not well visualized. Aortic Valve There is no aortic stenosis. Pulmonic Valve The pulmonic valve is not visualized. Mitral Valve The mitral valve is normal. Tricuspid Valve The tricuspid valve is not well visualized. Pericardium/Pleural Pericardium is normal in appearance with no evidence for significant pericardial effusion. Inferior Vena Cava Inferior vena cava is not well visualized. Aorta The aortic root at the level of the sinus of Valsalva measures 2.8 cm in diameter. Left Ventricular Outflow Tract Name Value Normal LVOT 2D LVOT Diameter 2.1 cm LVOT Doppler LVOT Peak Velocity 99 cm/s LVOT Peak Gradient 4 mmHg LVOT Mean Gradient 2 mmHg LVOT VTI 16 cm LVOT VTI/AV VTI Ratio 0.7 LVOT Stroke Volume 58 ml LVOT CO 5.1 l/min LVOT CI 1.5 l/min/m2 Pulmonic Valve Name Value Normal RVOT Doppler RVOT Peak Velocity 98 cm/s RVOT Peak Gradient 4 mmHg PV Doppler PV Peak Velocity 117 cm/s PV Peak Gradient 5 mmHg Mitral Valve Name Value Normal MV Diastolic Function MV E Peak Velocity 66 cm/s MV A Peak Velocity 45 cm/s MV E/A 1.4 MV Decel Time (PW) 134 ms MV Annular TDI MV E/e' (Septal) 4.8 MV E/e' (Lateral) 5.4 MV E/e' (Average) 5.1 Tricuspid Valve Name Value Normal TV Annular TDI TV Lateral Kyra s' Velocity 13.0 cm/s >=9.5 Aorta Name Value Normal Ascending Aorta Ao Root Diameter (MM) 2.6 cm Ao Root Diam Index (MM) 0.8 cm/m2 Aortic Valve Name Value Normal AV Doppler AV Peak Velocity 150 cm/s AV Peak Gradient 9 mmHg AV Mean Gradient 4 mmHg AV VTI 23 cm AV Area (Cont Eq VTI) 2.5 cm2 >=3.0 AV Area (Cont Eq Cruzito) 2.4 cm2 AV DI (Cruzito) 0.66 AV Regurgitation 2D LVOT Area 3.6 cm2 Ventricles Name Value Normal LV Dimensions 2D/MM IVS Diastolic Thickness (2D) 1.2 cm 0.6-1.0 LVID Diastole (2D) 4.3 cm 4.2-5.8 LVIW Diastolic Thickness (2D) 1.2 cm 0.6-1.0 LVID Systole (2D) 2.5 cm 2.5-4.0 LVOT Diameter 2.1 cm LV Mass (2D Cubed) 187.15 g 88.00-224.00 LV Mass Index (2D Cubed) 55 g/m2 49-115 Relative Wall Thickness (2D) 0.55 <=0.42 LV Fractional Shortening/Ejection Fraction 2D/MM LV Fractional Shortening (2D) 42 % 25-43 LV EF (2D Teichholz) 74 % LV Diastolic Volume (4C MOD) 50 ml LV EF (4C MOD) 72 % LV Diastolic Volume (2C MOD) 54 ml LV EF (2C MOD) 61 % LV Diastolic Volume (BP MOD) 52 ml 62-150 LV Diastolic Volume Index (BP MOD) 15 ml/m2 34-74 LV Systolic Volume (BP MOD) 17 ml 21-61 LV Systolic Volume Index (BP MOD) 5 ml/m2 11-31 LV EF (BP MOD) 67 % 52-72 LV Diastolic Length (4C) 9.2 cm LV Systolic Length (4C) 7.2 cm LV Stroke Volume (4C MOD) 36 ml Atria Name Value Normal LA Dimensions LA Dimension (MM) 4.2 cm 3.0-4.0 LA Volume (4C A-L) 53 ml LA Volume (BP A-L) 58 ml RA Dimensions RA Area (4C) 20.0 cm2 <=18.0 Report Signatures
[2025-03-29 08:37] LABS: CRP 2.0 mg/dL (<1.0)
[2025-03-29 08:38] LABS: NT Pro B Type Natriuretic Pept < 20 pg/mL (19.9-100)
[2025-03-29] MEDS: DOXYCYCLINE IV 100 MG in SODIUM CHLORIDE 0.9% IV 100 ML IVPB ×2 (09:47→22:00)
[2025-03-29 09:49] LABS: Procalcitonin 0.1 ng/mL
--- NOTE | 2025-03-29 11:25 | P.PNIM_ITS ---
Progress Note: A&P Assessment and Plan (1) Asthma exacerbation: Code(s): J45.901 - Unspecified asthma with (acute) exacerbation Status: Acute (2) Acute hypoxic respiratory failure: Code(s): J96.01 - Acute respiratory failure with hypoxia Status: Acute Plan Acute asthma exacerbation Acute hypoxic respiratory failure -patient has underlying asthma on rescue inhaler. He likely has moderate persistent asthma as opposed to mild intermittent -symptom onset 3 days prior to hospitalization -does not use any home oxygen therapy, in the ED dropped to 87% on room air -in the ED he was given Solu-Medrol 125 mg and magnesium 2 g -patient continued to have desaturations while sleeping, likely undiagnosed sleep apnea -patient placed on Airvo 35L 35% FiO2, will wean as tolerated. goal O2 sat>90% -steroids: Solu-Medrol 40 mg q.8 hour ->prednisone 50mg daily -nebs: DuoNebs-> xopenox q.6 hour -questionable pneumona, will continue antibiotics for now and re-assess tomorrow, had greenish sputum on presentation, despite afebrile and no leukocytosis on presentation and procalcitonin only 0.1 -antibiotics: Rocephin, doxycycline -continue monitor on telemetry -I discussed case with consult heavy duty custodian Dr. Li: Recs fo PO prednisone, echo, overnight pulse ox -respiratory panel pending, blood cultures pending -echocardiogram ordered -sinus tachycardia likely secondary to albuterol in the nebs, changing to xopenox -rising WBC likely from steroids, WBC 13.9k, afebrile Chronic conditions -class 3 morbid obesity: Will need weight loss plan, BMI 52.1 -depression: Not on any medications Diet: Heart healthy DVT prophylaxis: SCDs, ambulatory Code status: Full code Disposition: home in 1-2 days Time Spent With Patient Time: 35 minutes Subjective Date/time seen: 03/29/25 11:25 Interval history: Patient seen examined. He is feeling much better today. Heated high-flow oxygen decreased to 35 L 35% FiO2. I discussed case with pulmonary consultation recommends echocardiogram, changing to p.o. prednisone, overnight oximetry. Patient denies fever, chills, nausea vomiting or diarrhea. He feels much better and is asking to go home. We will monitor for 1 more day. Review of Systems Review of Systems: 10 point ROS complete, negative other th an what is specified in HPI. Exam Narrative: - GENERAL: Pleasant morbidly obese male in No acute distress, appears comfortable despite being on heated high flow O2 - EYES: EOMI. Anicteric. - HENT: Moist mucous membranes. - LUNGS: Clear to auscultation but dimin ished on heated high-flow oxygen 35 L, 35% FiO2 - CARDIOVASCULAR: Regular rate and rhyth m. - ABDOMEN: Soft, non-tender and non-dist ended. No palpable masses. - EXTREMITIES: No edema. Peripheral puls es 2+. Non-tender. - NEUROLOGIC: No focal neurological defi cits. CN II-XII grossly intact. - PSYCHIATRIC: Awake, Alert and oriented x 3. Appropriate mood and affect. Objective Data Vital Signs Vital Signs: Vital Signs - 24 hr 03/28/25 11:44 03/28/25 11:55 03/28/25 12:00 Temperature 36.4 C Pulse Rate 119 H 109 H Respiratory Rate 20 17 Blood Pressure 143/80 H Pulse Oximetry 79 L 94 95 Oxygen Delivery High Flow Therapy with Na Oxygen Flow Rate 30 Fraction of Inspired Oxygen 55 03/28/25 12:00 03/28/25 12:30 03/28/25 12:32 Temperature Pulse Rate 124 H 109 H Respiratory Rate 20 Blood Pressure Pulse Oximetry 94 Oxygen Delivery Oxygen Flow Rate 35 Fraction of Inspired Oxygen 03/28/25 12:40 03/28/25 13:00 03/28/25 16:00 Temperature Pulse Rate 109 H 109 H 105 H Respiratory Rate 20 20 Blood Pressure Pulse Oximetry 94 Oxygen Delivery High Flow Therapy with Na Oxygen Flow Rate 40 Fraction of Inspired Oxygen 45 03/28/25 16:00 03/28/25 16:30 03/28/25 18:45 Temperature 36.2 C L Pulse Rate 107 H 112 H 109 H Respiratory Rate 18 26 H 20 Blood Pressure 144/66 H Pulse Oximetry 98 100 93 Oxygen Delivery BiPAP High Flow Therapy with Na Oxygen Flow Rate 40 Fraction of Inspired Oxygen 40 03/28/25 20:00 03/28/25 20:00 03/28/25 20:00 Temperature 36.9 C Pulse Rate 112 H 113 H Respiratory Rate 20 Blood Pressure 135/67 Pulse Oximetry 91 90 Oxygen Delivery High Flow Therapy with Na Oxygen Flow Rate 40 Fraction of Inspired Oxygen 45 03/28/25 22:07 03/28/25 22:09 03/28/25 22:16 Temperature Pulse Rate 120 H 120 H 114 H Respiratory Rate 20 22 H 20 Blood Pressure Pulse Oximetry 90 Oxygen Delivery High Flow Therapy with Na Oxygen Flow Rate 40 Fraction of Inspired Oxygen 40 03/29/25 00:00 03/29/25 00:00 03/29/25 00:43 Temperature 36.9 C Pulse Rate 104 H 109 H 102 H Respiratory Rate 22 H 19 Blood Pressure 169/80 H Pulse Oximetry 94 97 Oxygen Delivery BiPAP Oxygen Flow Rate Fraction of Inspired Oxygen 03/29/25 01:00 03/29/25 01:09 03/29/25 04:00 Temperature Pulse Rate 96 98 93 Respiratory Rate 20 20 Blood Pressure Pulse Oximetry Oxygen Delivery Oxygen Flow Rate Fraction of Inspired Oxygen 03/29/25 04:00 03/29/25 04:09 03/29/25 07:45 Temperature 37.2 C Pulse Rate 100 102 H 109 H Respiratory Rate 22 H 20 20 Blood Pressure 132/76 Pulse Oximetry 100 94 Oxygen Delivery BiPAP Oxygen Flow Rate Fraction of Inspired Oxygen 03/29/25 07:45 03/29/25 07:55 03/29/25 08:00 Temperature 37.2 C Pulse Rate 109 H 105 H 94 Respiratory Rate 20 20 20 Blood Pressure 124/82 Pulse Oximetry 96 97 Oxygen Delivery High Flow Therapy with Na Oxygen Flow Rate 40 Fraction of Inspired Oxygen 40 03/29/25 08:00 03/29/25 09:50 Temperature Pulse Rate 117 H 94 Respiratory Rate 20 Blood Pressure Pulse Oximetry 97 Oxygen Delivery High Flow Therapy with Na Oxygen Flow Rate 40 Fraction of Inspired Oxygen Intake/Output Intake/Output: Intake & Output 03/26/25 03/27/25 03/28/25 03/29/25 23:59 23:59 23:59 23:59 Intake Total 1050 1520 237 Balance 1050 1520 237 Meds/Results Medications: Active Medications Generic Name Dose Route Start Last Admin Trade Name Freq PRN Reason Stop Dose Admin Acetaminophen 500 mg 03/28/25 01:05 03/28/25 23:14 Acetaminophen 500 Mg Tablet PO 500 mg Q6H PRN Administration Mild Pain (1-3) or Fever Albuterol/Ipratropium 3 ml 03/27/25 20:55 Ipratropium 0.5 Mg/Albuterol Sulfate 2.5 Mg (Base) Ampul.Neb 3 Ml INHALATION Q4HR PRN shortness of breath Albuterol/Ipratropium 3 ml 03/28/25 20:00 03/29/25 07:43 Ipratropium 0.5 Mg/Albuterol Sulfate 2.5 Mg (Base) Ampul.Neb 3 Ml INHALATION 3 ml Q6HRT ROMI Administration Ceftriaxone Sodium 1 gm/ 50 mls @ 100 mls/hr 03/28/25 22:00 03/28/25 21:11 Sodium Chloride IVPB 100 mls/hr Q24H ROMI Administration Doxycycline Hyclate 100 mg/ 100 mls @ 100 mls/hr 03/28/25 10:00 03/29/25 0 9:47 Sodium Chloride IVPB 04/01/25 10:59 100 mls/hr Q12H ROMI Administration Perflutren Lipid Microsphere 0 ml 03/29/25 08:14 Perflutren Lipid Microspheres 1.5 Ml Vial Diluted To 10 Ml Total Volume IV PUSH 04/01/25 08:14 ONCE PRN adequate visualization Protocol Prednisone 50 mg 03/29/25 11:00 Prednisone 10 Mg Tablet PO DAILY@0800 ROMI Sodium Chloride 1 applic 03/28/25 15:51 03/28/25 16:21 Sodium Chloride Nasal Gel 14.1 Gm NASAL 1 applic Q4H PRN Administration Dry Nasal Passages Radiology Results: ITS Impressions Chest X-Ray 03/27/25 17:29 Impression: No acute cardiopulmonary abnormality. Chest CTA 03/28/25 07:33 IMPRESSION: 1. No pulmonary embolus. 2. Patchy groundglass opacities in left lower lobe, consistent with pneumonia. Labs Labs: Laboratory Results - last 24 hr 03/29/25 04:41 WBC 13.9 H RBC 5.23 Hgb 13.3 L Hct 42.7 MCV 81.6 MCH 25.4 L MCHC 31.1 L RDW 14.5 Plt Count 339 MPV 11.5 H Sodium 135 L Potassium 4.4 Chloride 105 Carbon Dioxide 20 L Anion Gap 10 BUN 22 H Creatinine 0.63 L Estim Creat Clear Calc 275 Estimated GFR > 60 Glucose 116 H Calcium 9.6 Magnesium 2.5 H C-Reactive Protein 2.0 H NT-Pro-B Natriuret Pep < 20 Procalcitonin 0.1
--- NOTE | 2025-03-29 12:34 | PM.CNPUL ---
Assessment and Plan Assessment and plan (1) Asthma exacerbation: Code(s): J45.901 - Unspecified asthma with (acute) exacerbation Status: Acute Assessment and Plan: He has not followed with asthma specialist or PCP for many years and is currently maintained on p.r.n. albuterol. He says he takes this for about a week at a time every 1-2 months. His last use was 3-4 months ago. At baseline the patient says he can walk 1.5 miles and has no respiratory limitations in his activities of daily living. Patient's asthma triggers include hot weather, heavy exertional activity, change in the season, and dust. Patient is a never smoker, no vaping or illicit drugs year. Patient has a brother with asthma. On 03/22 the patient developed worsening cough with green phlegm and wheezing. He had some dyspnea on exertion. Symptoms progressed and the day before he presented he was working in the [employer] with his brother. He developed worsening shortness of breath unresponsive to rescue albuterol and presented to the emergency room on 03/27/2025. he denied fever, chills, rigors. In the emergency department his blood pressure is 174/92, heart rate 94, respirations 20 and room air saturations were 96%. He had wheezing on exam. His white blood cell count was 9.9 with eosinophils 6.9%, equals 683 per micro L. His creatinine was 0.64, his chest x-ray was negative, COVID influenza RSV RT PCR assay negative. ABG on 4 L nasal cannula 7.44/32/76. CT angiogram of the chest was negative for pulmonary embolism, there is a small patchy ground-glass opacity in the left lower lobe. Patient received a DuoNeb and then became hypoxemic Requiring Vapotherm as well as intermittent BiPAP. Patient was treated with Solu-Medrol, bronchodilators, ceftriaxone and doxycycline. 03/29/2025: When I enter the room the patient was on Vapotherm 35 L and 35% FiO2 with saturations 96%. I placed him on 10 L nasal cannula and decreased him sequentially to room air with saturations 90-92%. Patient denies fever, chills, rigors. Patient states that he is breathing normally, his cough is back to his normal with clear phlegm that has improved. He denies hemoptysis. His breathing on walking to the bathroom is normal. He still notices a small amount of wheezing. He is afebrile. White blood cell count 13.9, creatinine 0.63. Procalcitonin 0.1. CRP 2.0, BNP less than 20. Plan: agree with treatment for asthma exacerbation. Patient has improved and I will change his Solu-Medrol to prednisone 50 mg p.o. q.day. continue DuoNebs q.6 hours. For pneumonia will continue ceftriaxone and doxycycline, both day 3. I will send a respiratory pathogen panel, urine for Legionella antigen, urine for pneumococcal antigen and serum mycoplasma IgM looking for additional infectious etiology. goal saturation 90-94 with rest and with activity, adjust oxygen accordingly. Discussed with Dr. Zayas, will follow with you. (2) Daytime hypersomnia: Code(s): G47.10 - Hypersomnia, unspecified Status: Acute Assessment and Plan: Patient with morbid obesity, BMI 52.1, daytime hypersomnia, takes 1 nap during the day, he snores, no witnessed apneas. He does not feel refreshed in the morning and has morning headaches 1 time every 2 weeks. ABG 7.44/32/76 on 4 L nasal cannula without evidence of hypercarbic respiratory failure. He does not have obesity hypoventilation syndrome. Plan: I will perform overnight oximetry on room air to assess for nocturnal hypoxia. patient will need an outpatient sleep study to assess for sleep-related breathing disorder. History of Present Illness History of Present Illness Consult date: 03/29/25 Chief complaint: Acute hypoxic respiratory failure Narrative: 03/29/2025: This is a new pulmonary consult for asthma and morbid obesity. 19-year-old with a history of asthma since and morbid obesity with a BMI 52.1. Regarding his asthma the patient was intubated at 11 months. He was followed at [facility] in [place] and was last seen on 07/11/2010 for asthma. He was on Flovent 1102 puffs b.i.d. and Singulair 5 mg p.o. q.day. His FVC was 98% predicted, FEV1 was 112% predicted, his FEV1: FVC ratio is 99%. The plan was to continue Flovent, Singulair and Claritin p.r.n.. He was to use albuterol p.r.n. before exercise. He has not followed with asthma specialist for many years and is currently maintained on p.r.n. albuterol. He says he takes this for about a week at a time every 1-2 months. His last use was 3-4 months ago. At baseline the patient says he can walk 1.5 miles and has no respiratory limitations in his activities of daily living. Patient's asthma triggers include hot weather, heavy exertional activity, change in the season, and dust. Patient is a never smoker, no vaping or illicit drugs year. Patient has a brother with asthma. On 03/22 the patient developed worsening cough with green phlegm and wheezing. He had some dyspnea on exertion. Symptoms progressed and the day before he presented he was working in the [employer] with his brother. He developed worsening shortness of breath unresponsive to rescue albuterol and presented to the emergency room on 03/27/2025. he denied fever, chills, rigors. In the emergency department his blood pressure is 174/92, heart rate 94, respirations 20 and room air saturations were 96%. He had wheezing on exam. His white blood cell count was 9.9 with eosinophils 6.9%, equals 683 per micro L. His creatinine was 0.64, his chest x-ray was negative, COVID influenza RSV RT PCR assay negative. ABG on 4 L nasal cannula 7.44/. CT angiogram of the chest was negative for pulmonary embolism, there is a small patchy ground-glass opacity in the left lower lobe. Patient received a DuoNeb and then became hypoxemic Requiring Vapotherm as well as intermittent BiPAP. Patient was treated with Solu-Medrol, bronchodilators, ceftriaxone and doxycycline. 03/29/2025: When I enter the room the patient was on Vapotherm 35 L and 35% FiO2 with saturations 96%. I placed him on 10 L nasal cannula and decreased him sequentially to room air with saturations 90-92%. Patient denies fever, chills, rigors. Patient states that he is breathing normally, his cough is back to his normal with clear phlegm that has improved. He denies hemoptysis. His breathing on walking to the bathroom is normal. He still notices a small amount of wheezing. He is afebrile. White blood cell count 13.9, creatinine 0.63. Procalcitonin 0.1. CRP 2.0, BNP less than 20. DATA: EXAMINATION: CTA chest PE protocol DATE: 03/27/2025 20:28 INDICATION: Dyspnea. TECHNIQUE: Computed tomography angiography (CTA) of the chest was performed with 100 mL Omnipaque-350 intravenous contrast timed to evaluate the pulmonary arteries. Coronal maximum intensity projection 3D-reconstructions were created by the technologist. Automated exposure control and iterative reconstruction technique were employed. The dose-length product was 1088.11 mGy-cm. COMPARISON: None. FINDINGS: There are patchy groundglass opacities in left lower lobe. No pleural effusion. The heart size is normal. No pericardial effusion. There is no pulmonary embolus. There is moderate thoracic spondylosis. IMPRESSION: 1. No pulmonary embolus. 2. Patchy groundglass opacities in left lower lobe, consistent with pneumonia. Review of Systems Constitutional: Constitutional: Reports no additional constitutional complaints Eyes: Eyes: Reports no additional eye complaints ENT: Reports system reviewed and no additional complaints, except as documented Cardiovascular: Cardiovascular: Reports no additional cardiovascular complaints Respiratory: Respiratory: Reports no additional respiratory complaints Gastrointestinal: Gastrointestinal: Reports no additional gastrointestinal complaints Musculoskeletal: Musculoskeletal: Reports no additional musculoskeletal complaints Neurologic: Reports system reviewed and no additional complaints, except as documented Psychiatric: Psychiatric: Reports no additional psychiatric complaints Endocrine: Endocrine: Reports no additional endocrine complaints Hematologic/Lymphatic: Hematologic/Lymphatic: Reports no additional hematologic/lymphatic complaints Allergic/Immunologic: Allergic/Immunologic: Reports no additional allergic/immunologic complaints [facility] Past Medical History Medical History Asthma Depression Family History Family History (Updated 03/27/25 @ 22:35 by Blade Prieto RN) Father Diabetes mellitus Mother Diabetes mellitus Social History Social History Smoking status: Never smoker Second hand tobacco smoke exposure: No Alcohol intake: former Substance use: current Substance use type: prescription drug Lack of Transportation: No Lack of Food: Never True Current Housing: I Have Housing Concerned About Future Housing: No Difficulty Paying Gas/Electric Bills: No Difficulty Paying for Meds: No Currently Unemployed: YES Education: High School Diploma/GED Difficulty w/ Childcare or Family Care: No Gender identity (if verbalized by the patient): Male Spiritual care concerns: No Meds Home Medications and Allergies Home Medications ?Medication ?Instructions ?Recorded ?Confirmed ?Type albuterol sulfate 90 mcg/actuation 1 - 2 puff inhalation Q6-8H 12/30/19 03/27/25 History aerosol inhaler cyclobenzaprine 10 mg tablet 10 mg PO TID PRN muscle spasm #10 08/04/22 03/27/25 Rx tabs cyclobenzaprine 15 mg 15 mg PO DAILY #30 caps 08/05/22 03/27/25 Rx capsule,extended release 24 hr Allergies Allergy/AdvReac Type Severity Reaction Status Date / Time No Known Allergies Allergy Verified 03/27/25 22:30 Vital Signs Vital Signs - 24 hr 03/28/25 12:40 03/28/25 13:00 03/28/25 16:00 Temperature Pulse Rate 109 H 109 H 105 H Respiratory Rate 20 20 Blood Pressure Pulse Oximetry 94 Oxygen Delivery High Flow Therapy with Na Oxygen Flow Rate 40 Fraction of Inspired Oxygen 45 03/28/25 16:00 03/28/25 16:30 03/28/25 18:45 Temperature 36.2 C L Pulse Rate 107 H 112 H 109 H Respiratory Rate 18 26 H 20 Blood Pressure 144/66 H Pulse Oximetry 98 100 93 Oxygen Delivery BiPAP High Flow Therapy with Na Oxygen Flow Rate 40 Fraction of Inspired Oxygen 40 03/28/25 20:00 03/28/25 20:00 03/28/25 20:00 Temperature 36.9 C Pulse Rate 112 H 113 H Respiratory Rate 20 Blood Pressure 135/67 Pulse Oximetry 91 90 Oxygen Delivery High Flow Therapy with Na Oxygen Flow Rate 40 Fraction of Inspired Oxygen 45 03/28/25 22:07 03/28/25 22:09 03/28/25 22:16 Temperature Pulse Rate 120 H 120 H 114 H Respiratory Rate 20 22 H 20 Blood Pressure Pulse Oximetry 90 Oxygen Delivery High Flow Therapy with Na Oxygen Flow Rate 40 Fraction of Inspired Oxygen 40 03/29/25 00:00 03/29/25 00:00 03/29/25 00:43 Temperature 36.9 C Pulse Rate 104 H 109 H 102 H Respiratory Rate 22 H 19 Blood Pressure 169/80 H Pulse Oximetry 94 97 Oxygen Delivery BiPAP Oxygen Flow Rate Fraction of Inspired Oxygen 03/29/25 01:00 03/29/25 01:09 03/29/25 04:00 Temperature Pulse Rate 96 98 93 Respiratory Rate 20 20 Blood Pressure Pulse Oximetry Oxygen Delivery Oxygen Flow Rate Fraction of Inspired Oxygen 03/29/25 04:00 03/29/25 04:09 03/29/25 07:45 Temperature 37.2 C Pulse Rate 100 102 H 109 H Respiratory Rate 22 H 20 20 Blood Pressure 132/76 Pulse Oximetry 100 94 Oxygen Delivery BiPAP Oxygen Flow Rate Fraction of Inspired Oxygen 03/29/25 07:45 03/29/25 07:55 03/29/25 08:00 Temperature 37.2 C Pulse Rate 109 H 105 H 94 Respiratory Rate 20 20 20 Blood Pressure 124/82 Pulse Oximetry 96 97 Oxygen Delivery High Flow Therapy with Na Oxygen Flow Rate 40 Fraction of Inspired Oxygen 40 03/29/25 08:00 03/29/25 09:50 03/29/25 12:00 Temperature 36.6 C Pulse Rate 117 H 94 108 H Respiratory Rate 20 22 H Blood Pressure 134/65 Pulse Oximetry 97 95 Oxygen Delivery High Flow Therapy with Na Oxygen Flow Rate 40 Fraction of Inspired Oxygen 03/29/25 12:00 Temperature Pulse Rate 102 H Respiratory Rate Blood Pressure Pulse Oximetry Oxygen Delivery Oxygen Flow Rate Fraction of Inspired Oxygen Exam Narrative: Morbidly obese Const: General: cooperative and comfortable Orientation/consciousness: oriented to person, oriented to place and oriented to time HENMT: Head: normal to inspection Ears: hearing grossly normal bilaterally Eyes: General: appearance normal, both eyes and all related structures Neck: Neck: normal visual inspection Chest: Chest palpation & inspection: normal inspection of the chest Resp: Effort & Inspection: normal respiratory effort and able to speak in complete sentences Auscultation: no crackles, no rales, no rhonchi, no wheezes and diminished lung sounds Other: no wheezing Cardio: Jugular venous distension: no JVD GI: Inspection: normal to inspection GI Palp: No abdominal tenderness Skin: General skin exam: normal color Neuro: General: oriented to person, oriented to place and oriented to time Extrem: General: normal to inspection and no edema Psych: Appearance: grossly normal Results Laboratory Findings 03/29/25 04:41 03/29/25 04:41 Abnormal lab findings: Abnormal Labs 1103/27/25 03/28/25 16:43 23:34 06:10 WBC Hgb 13.8 L MCH 25.8 L 25.9 L MCHC 31.3 L 31.7 L MPV 11.0 H 11.6 H Immature Gran % (Auto) 0.6 H Neut % (Auto) 83.0 H Lymph % (Auto) 15.1 L [place] % (Auto) 1.2 L Eos % (Auto) 6.9 H Baso % (Auto) 0.1 L Lymph # (Auto) 3.42 H [place] # (Auto) 0.7 H Eos # (Auto) 0.7 H Abs Immat Gran (auto) 0.04 H 0.05 H Absolute Neuts (auto) 6.8 H VBG pH 7.440 H* VBG pCO2 31.7 L VBG pO2 76.4 H VBG HCO3 21.0 L Sodium Carbon Dioxide 20 L BUN Creatinine 0.64 L 0.68 L Glucose 177 H Magnesium AST 60 H ALT 72 H 67 H C-Reactive Protein Total Protein 8.3 H 03/29/25 04:41 WBC 13.9 H Hgb 13.3 L MCH 25.4 L MCHC 31.1 L MPV 11.5 H Immature Gran % (Auto) Neut % (Auto) Lymph % (Auto) [place] % (Auto) Eos % (Auto) Baso % (Auto) Lymph # (Auto) [place] # (Auto) Eos # (Auto) Abs Immat Gran (auto) Absolute Neuts (auto) VBG pH VBG pCO2 VBG pO2 VBG HCO3 Sodium 135 L Carbon Dioxide 20 L BUN 22 H Creatinine 0.63 L Glucose 116 H Magnesium 2.5 H AST ALT C-Reactive Protein 2.0 H Total Protein Diagnostic Findings Additional studies: ITS Impressions Chest X-Ray 03/27/25 17:29 Impression: No acute cardiopulmonary abnormality. Chest CTA 03/28/25 07:33
[2025-03-29] MEDS: PERFLUTREN LIPID MICROSPHERES 1.5 ML VIAL DILUTED TO 10 ML TOTAL VOLUME IV PUSH (15:53)
--- NOTE | 2025-03-29 16:50 | IVDEFINITY ---
Prior to administration of IV Definity the patient was educated on the risks and benefits of the imaging enhancing agent including potential adverse side effects. The patient verbalized understanding. Allergies were verified. No exclusion criteria were identified and at least one of the following inclusion criteria were met: 1) physician request, 2) patient technically difficult to image (per the [place] [employer] guidelines of two or more segments not discernable within the apical view), or 3) questionable left ventricular function. ?
[2025-03-29] MEDS: cefTRIAXone 1 GM in SODIUM CHLORIDE 0.9% IV 50 ML 100 ML IVPB (21:29)
[2025-03-30] VITALS (10 sets, daily range): BP systolic 124–134; BP diastolic 68–72; PULSE 74–136; RESP 18–20; TEMP 36–36.9; O2SAT 92–97
[2025-03-30 06:18] LABS: Hematocrit 42.6 % (42.0-52.0); Hemoglobin 13.3 g/dL (14.0-18.0); Mean Corpuscular HGB Conc 31.2 g/dl (32-36); Mean Corpuscular Hemoglobin 25.9 pg (26-34); Mean Corpuscular Volume 83.0 fl (80-100); Platelet Count Result 319 k/mm3 (150-375); Red Blood Count 5.13 M/mm3 (4.6-6.20); White Blood Count 15.8 K/mm3 (4.5-10.0)
[2025-03-30 06:42] LABS: Anion Gap 10 mmol/L (4-12); Blood Urea Nitrogen 26 mg/dL (9-20); Calcium 9.1 mg/dL (8.4-10.2); Carbon Dioxide 23 mmol/L (22-30); Chloride 105 mmol/L (98-107); Estimated CRCL calculation 262 ml/min; Estimated Glomerular Filt Rate > 60; Glucose 82 mg/dL (65-110); Magnesium 2.6 mg/dL (1.6-2.3); Potassium 4.1 mmol/L (3.4-5.0); Sodium 138 mmol/L (137-145)
[2025-03-30 07:50] LABS: Thyroid Stimulating Hormone 0.221 uIU/mL (0.465-4.680)
[2025-03-30 08:16] LABS: Free T4 Free Thyroxine 1.24 ng/dL (0.78-2.19)
--- NOTE | 2025-03-30 09:49 | P.PNPL_ITS ---
Progress Note: A&P Assessment and Plan (1) Asthma exacerbation: Code(s): J45.901 - Unspecified asthma with (acute) exacerbation Status: Acute Assessment and Plan: He has not followed with asthma specialist or PCP for many years and is currently maintained on p.r.n. albuterol. He says he takes this for about a week at a time every 1-2 months. His last use was 3-4 months ago. At baseline the patient says he can walk 1.5 miles and has no respiratory limitations in his activities of daily living. Patient's asthma triggers include hot weather, heavy exertional activity, change in the season, and dust. Patient is a never smoker, no vaping or illicit drugs year. Patient has a brother with asthma. On 03/22 the patient developed worsening cough with green phlegm and wheezing. He had some dyspnea on exertion. Symptoms progressed and the day before he presented he was working in the [employer] with his brother. He developed worsening shortness of breath unresponsive to rescue albuterol and presented to the emergency room on 03/27/2025. he denied fever, chills, rigors. In the emergency department his blood pressure is 174/92, heart rate 94, respirations 20 and room air saturations were 96%. He had wheezing on exam. His white blood cell count was 9.9 with eosinophils 6.9%, equals 683 per micro L. His creatinine was 0.64, his chest x-ray was negative, COVID influenza RSV RT PCR assay negative. ABG on 4 L nasal cannula 7.44/32/76. CT angiogram of the chest was negative for pulmonary embolism, there is a small patchy ground-glass opacity in the left lower lobe. Patient received a DuoNeb and then became hypoxemic Requiring Vapotherm as well as intermittent BiPAP. Patient was treated with Solu-Medrol, bronchodilators, ceftriaxone and doxycycline. 03/29/2025: When I enter the room the patient was on Vapotherm 35 L and 35% FiO2 with saturations 96%. I placed him on 10 L nasal cannula and decreased him sequentially to room air with saturations 90-92%. Patient denies fever, chills, rigors. Patient states that he is breathing normally, his cough is back to his normal with clear phlegm that has improved. He denies hemoptysis. His breathing on walking to the bathroom is normal. He still notices a small amount of wheezing. He is afebrile. White blood cell count 13.9, creatinine 0.63. Procalcitonin 0.1. CRP 2.0, BNP less than 20. Plan: agree with treatment for asthma exacerbation. Patient has improved and I will change his Solu-Medrol to prednisone 50 mg p.o. q.day. continue DuoNebs q.6 hours. For pneumonia will continue ceftriaxone and doxycycline, both day 3. I will send a respiratory pathogen panel, urine for Legionella antigen, urine for pneumococcal antigen and serum mycoplasma IgM looking for additional infectious etiology. goal saturation 90-94 with rest and with activity, adjust oxygen accordingly. 03/30/2025: Patient tells me he is 90% back to his baseline. His cough is improved and he produces clear phlegm. He has a little bit of wheezing but this is improved. His dyspnea on exertion when walking to the bathroom is at his baseline. He is afebrile. His room air saturations are 92%. White blood cell count 15.8, creatinine 0.66. His weight today is 181.8 kg. Patient tells me he feels he is ready to go home. from a pulmonary perspective patient is ready to be discharged on these pulmonary medications: Prednisone 40 mg p.o. q.day times 3 days Levofloxacin 750 mg p.o. q.day x4 days Medium dose ICS with Beta agonsit and inhaled corticosteroid (Advair discus 250/50 at 1 puff BID, Advair HFA 230/21 at 1 puffs BID, Breo Ellipts 100/25 at 1 puff Q day, Dulera 200/5 at 1 puffs BID, or symbicort 160/4.5 at 2 puffs BID) Rescue albuterol plus inhaled corticosteroid: with air supra 90-80 at 2 puffs q.4 hours p.r.n. shortness of breath or wheezing or Symbicort 160-4.5 at 1 puff q.4 hours p.r.n. shortness of breath or wheezing Oxygen 2 L nasal cannula naps or sleeps. Oxygen at rest and with activity per formal home O2 assessment which I have ordered. Follow-up in the Pulmonary Clinic in 3 weeks, I gave him our business card and informed our scabbler. patient will need outpatient PFTs and split night sleep study. Discussed with Dr. Stern, Will sign off, call with questions. (2) Daytime hypersomnia: Code(s): G47.10 - Hypersomnia, unspecified Status: Acute Assessment and Plan: Patient with morbid obesity, BMI 52.1, daytime hypersomnia, takes 1 nap during the day, he snores, no witnessed apneas. He does not feel refreshed in the morning and has morning headaches 1 time every 2 weeks. ABG 7.44/32/76 on 4 L nasal cannula without evidence of hypercarbic respiratory failure. He does not have obesity hypoventilation syndrome. Plan: I will perform overnight oximetry on room air to assess for nocturnal hypoxia. patient will need an outpatient sleep study to assess for sleep- related breathing disorder. 03/30/25: Patient had an overnight oximetry on room air with recording duration of 7 hours and 3 minutes. Average saturation 90%. Low saturation 85%. Time with saturation less than or equal to 88% was 65 minutes. Oxygen desaturation index 5.6. TSH 0.221, Low. Free T4 1.24 which is normal. Plan: Patient should wear 2 L nasal cannula at night. Patient should have Subjective Date/time seen: 03/30/25 09:49 Interval history: 03/29/2025: This is a new pulmonary consult for asthma and morbid obesity. 19-year-old with a history of asthma since and morbid obesity with a BMI 52.1. Regarding his asthma the patient was intubated at 11 months. He was followed at [facility] in [place] and was last seen on 07/11/2010 for asthma. He was on Flovent 1102 puffs b.i.d. and Singulair 5 mg p.o. q.day. His FVC was 98% predicted, FEV1 was 112% predicted, his FEV1: FVC ratio is 99%. The plan was to continue Flovent, Singulair and Claritin p.r.n.. He was to use albuterol p.r.n. before exercise. He has not followed with asthma specialist for many years and is currently maintained on p.r.n. albuterol. He says he takes this for about a week at a time every 1-2 months. His last use was 3-4 months ago. At baseline the patient says he can walk 1.5 miles and has no respiratory limitations in his activities of daily living. Patient's asthma triggers include hot weather, heavy exertional activity, change in the season, and dust. Patient is a never smoker, no vaping or illicit drugs year. Patient has a brother with asthma. On 03/22 the patient developed worsening cough with green phlegm and wheezing. He had some dyspnea on exertion. Symptoms progressed and the day before he presented he was working in the [place] with his brother. He developed worsening shortness of breath unresponsive to rescue albuterol and presented to the emergency room on 03/27/2025. he denied fever, chills, rigors. In the emergency department his blood pressure is 174/92, heart rate 94, respirations 20 and room air saturations were 96%. He had wheezing on exam. His white blood cell count was 9.9 with eosinophils 6.9%, equals 683 per micro L. His creatinine was 0.64, his chest x-ray was negative, COVID influenza RSV RT PCR assay negative. ABG on 4 L nasal cannula 7.44/. CT angiogram of the chest was negative for pulmonary embolism, there is a small patchy ground-glass opacity in the left lower lobe. Patient received a DuoNeb and then became hypoxemic Requiring Vapotherm as well as intermittent BiPAP. Patient was treated with Solu-Medrol, bronchodilators, ceftriaxone and doxycycline. 03/29/2025: When I enter the room the patient was on Vapotherm 35 L and 35% FiO2 with saturations 96%. I placed him on 10 L nasal cannula and decreased him sequentially to room air with saturations 90-92%. Patient denies fever, chills, rigors. Patient states that he is breathing normally, his cough is back to his normal with clear phlegm that has improved. He denies hemoptysis. His breathing on walking to the bathroom is normal. He still notices a small amount of wheezing. He is afebrile. White blood cell count 13.9, creatinine 0.63. P rocalcitonin 0.1. CRP 2.0, BNP less than 20. 03/30/2025: Patient tells me he is 90% back to his baseline. His cough is improved and he produces clear phlegm. He has a little bit of wheezing but this is improved. His dyspnea on exertion when walking to the bathroom is at his baseline. He is afebrile. His room air saturations are 92%. White blood cell count 15.8, creatinine 0.66. His weight today is 181.8 kg. Patient had an overnight oximetry on room air with recording duration of 7 hours and 3 minutes. Average saturation 90%. Low saturation 85%. Time with saturation less than or equal to 88% was 65 minutes. Oxygen desaturation index 5.6. Patient tells me he feels he is ready to go home. DATA: 03/29/25: Echo Summary 1. There is normal biventricular size and systolic function. 2. This was a suboptimal study with poor acoustic windows to clearly define the valves. However there are no clear evidence by echo color Doppler of severe valvular disease. 3. There was insufficient assessment of the tricuspid valve to estimate the pulmonary pressures. Right Ventricle The right ventricle is normal in size and systolic function. Left Atria The left atrium is normal size. Right Atria The right atrium is normal size. EXAMINATION: CTA chest PE protocol DATE: 03/27/2025 20:28 INDICATION: Dyspnea. TECHNIQUE: Computed tomography angiography (CTA) of the chest was performed with 100 mL Omnipaque-350 intravenous contrast timed to evaluate the pulmonary arteries. Coronal maximum intensity projection 3D-reconstructions were created by the technologist. Automated exposure control and iterative reconstruction technique were employed. The dose-length product was 1088.11 mGy-cm. COMPARISON: None. FINDINGS: There are patchy groundglass opacities in left lower lobe. No pleural effusion. The heart size is normal. No pericardial effusion. There is no pulmonary embolus. There is moderate thoracic spondylosis. IMPRESSION: 1. No pulmonary embolus. 2. Patchy groundglass opacities in left lower lobe, consistent with pneumonia. Review of Systems Constitutional: Constitutional: Reports no additional constitutional complaints Eyes: Eyes: Reports no additional eye complaints ENT: Reports system reviewed and no additional complaints, except as documented Cardiovascular: Cardiovascular: Reports no additional cardiovascular complaints Respiratory: Respiratory: Reports no additional respiratory complaints Gastrointestinal: Gastrointestinal: Reports no additional gastrointestinal complaints Musculoskeletal: Musculoskeletal: Reports no additional musculoskeletal complaints Neurologic: Reports system reviewed and no additional complaints, except as documented Psychiatric: Psychiatric: Reports no additional psychiatric complaints Endocrine: Endocrine: Reports no additional endocrine complaints Hematologic/Lymphatic: Hematologic/Lymphatic: Reports no additional hematologi c/lymphatic complaints Allergic/Immunologic: Allergic/Immunologic: Reports no additional allergic/immunologic complaints Exam Narrative: Morbidly obese Const: General: cooperative and comfortable Orientation/consciousness: oriented to person, oriented to place and oriented to time HENMT: Head: normal to inspection Ears: hearing grossly normal bilaterally Eyes: General: appearance normal, both eyes and all related structures Neck: Neck: normal visual inspection Chest: Chest palpation & inspection: normal inspection of the chest Resp: Effort & Inspection: normal respiratory effort and able to speak in complete sentences Auscultation: no crackles, no rales, no rhonchi, wheezes and diminished lung sounds Other: Few wheezes right upper lobe otherwise no wheezing Cardio: Jugular venous distension: no JVD GI: Inspection: normal to inspection Skin: General skin exam: normal color Neuro: General: oriented to person, oriented to place and oriented to time Extrem: General: normal to inspection and no edema Psych: Appearance: grossly normal Objective Data Vital Signs Vital Signs: Vital Signs - 24 hr 03/29/25 09:50 03/29/25 12:00 03/29/25 12:00 Temperature 36.6 C Pulse Rate 94 108 H 102 H Respiratory Rate 20 22 H Blood Pressure 134/65 Pulse Oximetry 97 95 Oxygen Delivery High Flow Therapy with Na Oxygen Flow Rate 40 Fraction of Inspired Oxygen 03/29/25 14:44 03/29/25 14:44 03/29/25 14:55 Temperature Pulse Rate 68 98 72 Respiratory Rate 20 23 H 20 Blood Pressure Pulse Oximetry 96 Oxygen Delivery BiPAP Oxygen Flow Rate Fraction of Inspired Oxygen 03/29/25 15:56 03/29/25 15:57 03/29/25 16:00 Temperature 36.9 C Pulse Rate 102 H Respiratory Rate 22 H Blood Pressure 134/65 Pulse Oximetry 89 L 91 95 Oxygen Delivery High Flow Nasal Cannula Oxygen Flow Rate 4 Fraction of Inspired Oxygen 03/29/25 16:00 03/29/25 17:37 03/29/25 20:00 Temperature Pulse Rate 99 102 H Respiratory Rate 24 H Blood Pressure Pulse Oximetry 96 95 Oxygen Delivery BiPAP High Flow Nasal Cannula Oxygen Flow Rate 3 Fraction of Inspired Oxygen 03/29/25 20:00 03/29/25 20:00 03/29/25 21:05 Temperature 36.3 C L Pulse Rate 119 H 105 H 98 Respiratory Rate 20 16 Blood Pressure 131/58 L Pulse Oximetry 95 Oxygen Delivery Oxygen Flow Rate Fraction of Inspired Oxygen 03/29/25 21:21 03/29/25 22:20 03/30/25 00:00 Temperature Pulse Rate 98 109 H Respiratory Rate 16 Blood Pressure Pulse Oximetry 95 96 Oxygen Delivery High Flow Nasal Cannula Room Air Oxygen Flow Rate 3 Fraction of Inspired Oxygen 21 03/30/25 00:00 03/30/25 04:00 03/30/25 04:00 Temperature 36.0 C L 36.3 C L Pulse Rate 106 H 74 99 Respiratory Rate 18 20 Blood Pressure 133/72 134/72 Pulse Oximetry 97 95 Oxygen Delivery Oxygen Flow Rate Fraction of Inspired Oxygen 03/30/25 08:00 03/30/25 08:00 03/30/25 08:33 Temperature 36.3 C L Pulse Rate 91 96 Respiratory Rate 18 20 Blood Pressure 129/68 Pulse Oximetry 94 Oxygen Delivery Room Air Oxygen Flow Rate Fraction of Inspired Oxygen 03/30/25 08:39 Temperature Pulse Rate 117 H Respiratory Rate 20 Blood Pressure Pulse Oximetry Oxygen Delivery Oxygen Flow Rate Fraction of Inspired Oxygen Intake/Output Intake/Output: Intake & Output 03/27/25 03/28/25 03/29/25 03/30/25 23:59 23:59 23:59 23:59 Intake Total 1050 9698 554 4067 Output Total 500 750 Balance 1050 1570 467 690 Meds/Results Medications: Active Medications Generic Name Dose Route Start Last Admin Trade Name Freq PRN Reason Stop Dose Admin Acetaminophen 500 mg 03/28/25 01:05 03/28/25 23:14 Acetaminophen 500 Mg Tablet PO 500 mg Q6H PRN Administration Mild Pain (1-3) or Fever Albuterol/Ipratropium 3 ml 03/27/25 20:55 Ipratropium 0.5 Mg/Albuterol Sulfate 2.5 Mg (Base) Ampul.Neb 3 Ml INHALATION Q4HR PRN shortness of breath Ceftriaxone Sodium 1 gm/ 50 mls @ 100 mls/hr 03/28/25 22:00 03/29/25 21:59 Sodium Chloride IVPB Infused Q24H ROMI Infusion Doxycycline Hyclate 100 mg/ 100 mls @ 100 mls/hr 03/28/25 10:00 03/30/25 09:02 Sodium Chloride IVPB 04/01/25 10:59 100 mls/hr Q12H ROMI Administration Levalbuterol HCl 1.25 mg 03/29/25 14:00 03/30/25 08:31 Levalbuterol Neb 1.25 Mg/3 Ml INHALATION 1.25 mg Q6HRT ROMI Administration Prednisone 50 mg 03/29/25 11:00 03/30/25 09:01 Prednisone 10 Mg Tablet PO 50 mg DAILY@0800 ROMI Administration Sodium Chloride 1 applic 03/28/25 15:51 03/28/25 16:21 Sodium Chloride Nasal Gel 14.1 Gm NASAL 1 applic Q4H PRN Administration Dry Nasal Passages Radiology Results: ITS Impressions Chest X-Ray 03/27/25 17:29 Impression: No acute cardiopulmonary abnormality. Chest CTA 03/28/25 07:33 IMPRESSION: 1. No pulmonary embolus. 2. Patchy groundglass opacities in left lower lobe, consistent with pneumonia. Labs Labs: Laboratory Results - last 24 hr 03/29/25 03/30/25 04:41 05:39 WBC 15.8 H RBC 5.13 Hgb 13.3 L Hct 42.6 MCV 83.0 MCH 25.9 L MCHC 31.2 L RDW 14.7 H Plt Count 319 MPV 11.3 H Sodium 138 Potassium 4.1 Chloride 105 Carbon Dioxide 23 Anion Gap 10 BUN 26 H Creatinine 0.66 L Estim Creat Clear Calc 262 Estimated GFR > 60 Glucose 82 Calcium 9.1 Magnesium 2.6 H Procalcitonin 0.1 TSH 0.221 L Free T4 1.24
--- NOTE | 2025-03-30 12:08 | HOMEO2EVAL ---
Evaluation was performed at [facility] Home Oxygen Evaluation RC: Home Oxygen (O2) Evaluation Start: 03/30/25 10:04 Freq: ONCE Status: Active Protocol: RPE Activity Type Activity Date Activity User E-sign Co-sign Detail Recorded Client Recorded Date Recorded By Document 03/30/25 11:50 LAZARO [email or web address] 03/30/25 12:08 LAZARO Document 03/30/25 11:55 LAZARO [email or web address] 03/30/25 12:08 LAZARO Document 03/30/25 12:00 [email or web address] [email or web address] 03/30/25 12:08 LAZARO 03/30/25 03/30/25 03/30/25 11:50 11:55 12:00 Home O2 Evaluation [Oxygen] -Test Phase Resting Exercise Resting -Oxygen Delivery Room Air Room Air Room Air [Pulse Oximetry] -Pulse Oximetry (90-100 %) 96 92 94 [Pulse Rate] -Pulse Rate (60-100 beats/min) 123 H 136 H 103 H [Comments] -Home Oxygen Evaluation Comments No home O2 needed at rest or with exertion. [Charges] -Evaluation Charges O2 Evaluation by Pulmonary
--- NOTE | 2025-03-30 12:08 | PCRCNOTE ---
Home o2 needed nocturnally at 2 l. Will arrange with [facility]. Patient will be self pay, Info given to patient, he is to call [facility] at D/C to arrange for home concentrator and payment.
--- NOTE | 2025-03-30 12:11 | PCRCNOTE ---
[facility] [phone] rep [facility] [phone]
--- NOTE | 2025-03-30 12:51 | P.DS_ITS ---
DS: Admitting Diagnosis Discharge Date 03/30/2025 Admitting Diagnosis Asthma exacerbation DS: Discharge Diagnosis Discharge Diagnosis (1) Asthma exacerbation: Code(s): J45.901 - Unspecified asthma with (acute) exacerbation Status: Acute (2) Acute hypoxic respiratory failure: Code(s): J96.01 - Acute respiratory failure with hypoxia Status: Acute Plan Acute asthma exacerbation Acute hypoxic respiratory failure -patient has underlying asthma on rescue inhaler. He likely has moderate persistent asthma as opposed to mild intermittent -symptom onset 3 days prior to hospitalization -does not use any home oxygen therapy, in the ED dropped to 87% on room air -in the ED he was given Solu-Medrol 125 mg and magnesium 2 g -patient continued to have desaturations while sleeping, likely undiagnosed sleep apnea -patient placed on Airvo 35L 35% FiO2, will wean as tolerated. goal O2 sat>90% -steroids: Solu-Medrol 40 mg q.8 hour ->prednisone 50mg daily -nebs: DuoNebs-> xopenox q.6 hour -questionable pneumona, will continue antibiotics for now and re-assess tomorrow, had greenish sputum on presentation, despite afebrile and no leukocytosis on presentation and procalcitonin only 0.1 -antibiotics: Rocephin, doxycycline -continue monitor on telemetry -I discussed case with consult sap basis administrator Dr. Li: Recs fo PO prednisone, echo, overnight pulse ox -respiratory panel pending, blood cultures pending -echocardiogram ordered -sinus tachycardia likely secondary to albuterol in the nebs, changing to xopenox -rising WBC likely from steroids, WBC 13.9k, afebrile Chronic conditions -class 3 morbid obesity: Will need weight loss plan, BMI 52.1 -depression: Not on any medications Diet: Heart healthy DVT prophylaxis: SCDs, ambulatory Code status: Full code Disposition: home in 1-2 days DS: Summary Hospital Course Hospital Course: 19-year-old male with PMH asthma, depression, class 3 obesity presents to [facility] on 03/27/2025 with 3 days of shortness of breath. Lives with his parents, currently does not have insurance, only has a rescue inhaler. Three days ago the patient experienced shortness of breath, cough productive of green sputum. Did not notice wheezing. His father placed him on his mother's nasal cannula and he felt better. However symptoms persisted over the next few days. He has been working out in the yard, younger brother had an asthma attack recently as well. They have mold in the house, dogs for many years now. Denies tobacco abuse, marijuana, alcohol, recreational drug use. Patient snores a lot as well. Denies fever, had some chest tightness which resolved. Denies nausea, vomiting, diarrhea, fever, syncope. In the ER the patient's O2 saturation on room air has been dropping to 87%. Received breathing treatments, had sinus tachycardia, tachypnea, blood pressure elevated at 164/87. Laboratory evaluation with normal white cells, eosinophils 6.9%, CMP remarkable for AST 60, ALT 72, quad viral screen negative. Chest x- ray two view without acute abnormalities. Also received ceftriaxone 1 g, doxycycline 100 mg, magnesium rider 2 g, Solu-Medrol 125 mg IM x1. I assumed care on the day of discharge. Discussed with Dr. Li and advised to discharge with the following recommendation: Prednisone 40 mg p.o. q.day times 3 days Levofloxacin 750 mg p.o. q.day x4 days Medium dose ICS with Beta agonsit and inhaled corticosteroid (Advair discus 250/50 at 1 puff BID, Advair HFA 230/21 at 1 puffs BID, Breo Ellipts 100/25 at 1 puff Q day, Dulera 200/5 at 1 puffs BID, or symbicort 160/4.5 at 2 puffs BID) Rescue albuterol plus inhaled corticosteroid: with air supra 90-80 at 2 puffs q.4 hours p.r.n. shortness of breath or wheezing or Symbicort 160-4.5 at 1 puff q.4 hours p.r.n. shortness of breath or wheezing Oxygen 2 L nasal cannula naps or sleeps. Oxygen at rest and with activity per formal home O2 assessment On the day of discharge, the patient was seen and examined. Vital signs were stable. Physical exam were stable and labs were reviewed at length. Discharge instructions, medications, and follow-up appointments were discussed with the patient at length and all day questions were answered. ER warnings were given. Status at Discharge Cognitive/behavioral status at discharge: Stable Time Spent with Patient Time attestation: Total time spent providing and/or coordinating discharge services: 45 minutes Exam Narrative: - GENERAL: Pleasant morbidly obese male in No acute distress, appears comfortable despite being on heated high flow O2 - EYES: EOMI. Anicteric. - HENT: Moist mucous membranes. - LUNGS: Clear to auscultation but dimin ished on heated high-flow oxygen 35 L, 35% FiO2 - CARDIOVASCULAR: Regular rate and rhyth m. - ABDOMEN: Soft, non-tender and non-dist ended. No palpable masses. - EXTREMITIES: No edema. Peripheral puls es 2+. Non-tender. - NEUROLOGIC: No focal neurological defi cits. CN II-XII grossly intact. - PSYCHIATRIC: Awake, Alert and oriented x 3. Appropriate mood and affect. Const: General: comfortable and no acute distress Other: A&O x4 HENMT: Mouth: Yes moist mucous membranes Other: Modified Mallampati score 4 Eyes: Pupils: Equal, round and reactive pupils present Neck: Neck: supple Resp: Auscultation: diminished lung sounds Other: Slight wheeze, no other adventitious sounds Cardio: Rate: tachycardic Rhythm: regular rhythm Heart sounds: no murmurs GI: Inspection: non-distended : General: Yes bladder normal to palpation Neuro: Cranial nerves: Yes Equal, round and reactive pupils present Motor exam (neuro): 5/5 motor strength present throughout Extrem: General: no edema DS: Data Data Completed and Pending Labs on day of discharge: Labs from last 24 hours 03/30/25 05:39 WBC 15.8 H RBC 5.13 Hgb 13.3 L Hct 42.6 MCV 83.0 MCH 25.9 L MCHC 31.2 L RDW 14.7 H Plt Count 319 MPV 11.3 H Sodium 138 Potassium 4.1 Chloride 105 Carbon Dioxide 23 Anion Gap 10 BUN 26 H Creatinine 0.66 L Estim Creat Clear Calc 262 Estimated GFR > 60 Glucose 82 Calcium 9.1 Magnesium 2.6 H TSH 0.221 L Free T4 1.24 M.pneumoniae IgM Titer Pending Discharge Plan Discharge Attending physician on discharge: Geo Stern Consulting providers: Lauri Ordoñez; Jon Li Discharging Clinician: Geo Stern Anticipated Discharge Date/Time: 03/30/25 12:38 Patient Disposition: Home Activity: as tolerated Diet: as tolerated Discharge Instructions: In the event of shortness of breath or other concerning symptoms please visit the nearby ED As per Pulmonology : Oxygen 2 L nasal cannula naps or sleeps. Oxygen at rest and with activity per formal home O2 assessment Follow-up with your primary care provider in 1-2 weeks. Please call for appointment. Follow-up with Pulmonology in 2-4 weeks. Please call for an appointment. Thank you for using [facility] for your health care needs. Patient Instructions: Antibiotic Form Patient Language: Lithuanian Stand Alone Forms: General Discharge Information Follow-up/Referrals: PHYSICIAN,[facility]IL WELL SERVICES DISPATCHER [Primary Care Provider, Internal Medicine] Lauri Ordoñez MD [Physician, Family Practice] Jon Li MD [Physician, Pulmonology] Discharge Medications: New prednisone 20 mg tablet 40 mg PO DAILY 5 Days Qty: 10 0RF levofloxacin 750 mg tablet 750 mg PO DAILY Qty: 4 0RF fluticasone propion-salmeterol [Advair Diskus] 250-50 mcg/dose blister with device 1 inh inhalation Q12H Qty: 60 0RF budesonide-formoterol [Symbicort] 160-4.5 mcg/actuation HFA aerosol inhaler 1 inh inhalation Q4H PRN (Reason: shortness of breath or wheezing) Qty: 10.2 0RF Continued cyclobenzaprine 10 mg tablet 10 mg PO TID PRN (Reason: muscle spasm) Qty: 10 0RF Patient Comments: Pt states he has no insurance. Takes his mothers prescription. Discontinued albuterol sulfate 90 mcg/actuation HFA aerosol inhaler 1 - 2 puff INHALATION Q6-8H Patient Comments: Pt states he has no insurance. He uses his brothers cyclobenzaprine 15 mg capsule,extended release 24hr 15 mg PO DAILY Qty: 30 0RF Patient Comments: Pt states he has no insurance. He takes his mothers prescription. Date of admission: 03/27/25 20:02 Primary Care Provider: PHYSICIAN,OIL WELL SERVICES DISPATCHER Admitting Provider: Ne Patel Attending physician on admission: Ne Patel Condition: Stable
== END 2025-03-30 15:45 | disposition home or self-care (01) | DRG 141 ==
LOC: ANHED 19:43 → ANH3MEDSUR 20:33
PROVIDERS: Internal Medicine Pulmonary Disease; Student in an Organized Health Care Education/Training Program; Admitting Provider General Practice; Visit Provider General Practice
DX: J45.901 Unspecified asthma with (acute) exacerbation (principal); J96.01 Acute respiratory failure with hypoxia; J18.9 Pneumonia, unspecified organism; G47.10 Hypersomnia, unspecified; E66.01 Morbid (severe) obesity due to excess calories; F32.A Depression, unspecified; Z20.822 Contact with and (suspected) exposure to COVID-19; Z68.43 Body mass index [BMI] 50.0-59.9, adult
CPT/HCPCS: 36415; 36600; 71046; 71275; 80048; 80053; 82803; 83735; 83880; 84145; 84439; 84443; 85025; 85027; 86140; 86738; 87040; 87070; 87205; 87449; 87637; 87899; 94002; 94618; 94640; 94660; 94762; 96365; 96372; 99285; A9270; C8929; J0696; J2919; J3475; J7030; J7512; Q9957; Q9967